=== PATIENT | female | born 1940 | race Caucasian/White ===

== ENCOUNTER 2019-07-15 16:52 | Emergency (ER) | payer MEDICARE, OTHER, SELFPAY ==
[2019-07-15 17:05] VITALS: BP 189/86; PULSE 88; RESP 20; TEMP 36.6; O2SAT 97
--- NOTE | 2019-07-15 17:34 | ED.GENADULT ---
HPI - General Adult General Chief complaint: Wound/Laceration Stated complaint: Injury on chin Time Seen by Provider: 07/15/19 17:36 Source: patient and RN notes reviewed Mode of arrival: ambulatory Limitations: no limitations History of Present Illness HPI narrative: This is a 78 years old female presented office for evaluation of possible infected wound. A week ago she fell asleep in a chair and injured her chin against a sharp end of her cabinet. She did not seek care immediately because it did not look bad until today. She stated her wound popped open and clear/yellow drainage with blood keeps oozing out. She is diabetic. TD unknown. Denies head injury or trauma that she recalls. She takes baby aspirin daily. Related Data Home Medications Medication Instructions Recorded Confirmed betamethasone dipropionate TOPICAL 07/15/19 cyclosporine [Restasis] 07/15/19 fluticasone propionate [Flonase INTRANASAL 07/15/19 Allergy Relief] gabapentin [Neurontin] 07/15/19 glyburide micronized mg 07/15/19 insulin glargine [Lantus Solostar unit SUBCUT 07/15/19 U-100 Insulin] losartan 07/15/19 metformin mg PO 07/15/19 potassium chloride meq PO 07/15/19 zolpidem 07/15/19 07/15/19 Allergies Allergy/AdvReac Type Severity Reaction Status Date / Time No Known Allergies Allergy Verified 07/15/19 17:10 Review of Systems Review of Systems: Narrative: CONSTITUTIONAL: Denies fever CARDIOVASCULAR: Denies chest pain RESPIRATORY: Denies dyspnea GASTROINTESTINAL: Denies nausea, vomiting SKIN: Reports cut on her chin with swelling, drainage and bruising down her neck MUSCULOSKELETAL: Denies extremities pain NEUROLOGIC: Denies lightheaded/headache or blurry vision [facility] Past Medical History Medical History (Updated 07/15/19 @ 18:13 by SOTO Shane) Essential (primary) hypertension Hyperlipidemia with target LDL less than 100 Type 2 diabetes mellitus with hyperglycemia Family History Family History Mother Family history of primary malignant neoplasm of liver Social History Social History Smoking status: Never smoker Second hand tobacco smoke exposure: No Alcohol intake: current Comments At time of signature, I agree with nursing past medical, surgical, social and family history. There is no relevant family history pertinent to the presenting complaint. Exam Narrative: Exam Narrative: GENERAL: This is a well-nourished, well-developed patient, in no apparent distress. EYES: PERRL. Sclera clear/white. Vision is grossly intact. THROAT: Mucous membranes moist, posterior pharynx clear; no laceration noted inside her mucosa CARDIOVASCULAR: Regular rate and rhythm without murmurs, gallops, or rubs. RESPIRATORY: Clear to auscultation. Breath sounds equal bilaterally. No wheezes, rales, or rhonchi. GASTROINTESTINAL: Abdomen soft, non-tender, nondistended. Bowel sounds are active. No hepato-splenomegaly, or palpable masses. No guarding. SKIN: chin noted ~1cm laceration with clear serous drainage express with gentle pressure with ecchymosis sourrouding that extends down to anterior neck; no tracheal tenderness/deviation. wound is cleaned and dress with Neosporin and Band-Aid. NEURO: awake, alert, and oriented to person, place and time. There were no obvious focal neurologic abnormalities. Steady gait EXTREMITIES: Normal range of motion. No edema. [place] Coma Scale Eye Opening: Spontaneous 4 Jean Coma Scale Motor: Obeys Commands 6 [place] Coma Scale Verbal: Oriented 5 Course Vital Signs Vital signs: Vital Signs Temperature 97.8 F 07/15/19 17:05 Pulse Rate 88 07/15/19 17:05 Respiratory Rate 20 07/15/19 17:05 Blood Pressure 189/86 H 07/15/19 17:05 Pulse Oximetry 97 07/15/19 17:05 Temperature 97.8 F 07/15/19 17:05 Pulse Rate 88 07/15/19 17:05 Respiratory Rat
[2019-07-15] MEDS: TETANUS/DIPHTHERIA TOXOIDS ADSORB 0.5 ML VIAL (*BKC) IM (18:01)
[2019-07-15] MEDS: cefTRIAXone 250 MG VIAL IM (18:05)
[2019-07-15] MEDS: LIDOCAINE HCL 1% LOCAL INJ 20 ML VIAL INFILTRATE (18:06)
[2019-07-15 18:20] VITALS: BP 150/88
--- NOTE | 2019-07-15 18:24 | PC.NURSE ---
1801. maker of boostrix tdap administered is [employer]. Anita KUHN RN.
== END 2019-07-15 18:22 | disposition home or self-care (01) ==
PROVIDERS: Emergency Provider Nurse Practitioner; PCP Family Medicine
DX: S01.80XA Unspecified open wound of other part of head, initial encounter (principal); L08.9 Local infection of the skin and subcutaneous tissue, unspecified; X58.XXXA Exposure to other specified factors, initial encounter; Z23 Encounter for immunization; E11.9 Type 2 diabetes mellitus without complications; I10 Essential (primary) hypertension; E78.5 Hyperlipidemia, unspecified
CPT/HCPCS: 90471; 90714; 96372; 99213; G0463; J0696

== ENCOUNTER 2020-02-09 12:17 | Emergency (ER) | payer MEDICARE, OTHER, SELFPAY ==
[2020-02-09 12:29] VITALS: BP 154/69; PULSE 106; RESP 16; TEMP 37.1; O2SAT 97
--- NOTE | 2020-02-09 12:46 | ED.BACK ---
HPI - Back Pain/Injury General Chief Complaint: Back Pain/Injury Stated Complaint: severe back pain Time Seen by Provider: 02/09/20 12:56 Source: patient History of Present Illness HPI Narrative: Patient presents with low back pain. Patient states she has no pain at the present. Patient states she had low back pain last night she took 2 Excedrin and pain was relieved. Patient states she was at water therapy today and was instructed to come to the [facility] care to rule out a urinary tract infection. Patient denies any burning with urination no urinary urgency denies any urinary continence denies any gross hematuria. Patient denies any flank pain no abdominal pain no pelvic pain. Patient denies any numbness or tingling denies any radiation of pain. Patient has no pain at present. MD elicited complaint: back pain Related Data Home Medications Medication Instructions Recorded Confirmed cyclosporine [Restasis] 07/15/19 fluticasone propionate [Flonase 2 spray INTRANASAL BID 07/15/19 Allergy Relief] gabapentin [Neurontin] 300 mg PO DAILY 07/15/19 glyburide micronized 3 mg PO BID 07/15/19 insulin glargine [Lantus Solostar 10 unit SUBCUT HS 07/15/19 U-100 Insulin] losartan 50 mg PO DAILY 07/15/19 potassium chloride 20 meq PO DAILY 07/15/19 zolpidem 5 mg PO HS 07/15/19 07/15/19 furosemide 02/09/20 02/09/20 Allergies Allergy/AdvReac Type Severity Reaction Status Date / Time No Known Allergies Allergy Verified 02/09/20 12:52 Review of Systems Review of Systems: Narrative: CONSTITUTIONAL: Denies fever, chills, or sweats. EYES: Denies visual changes, redness, or discharge. ENT: Denies rhinorrhea, congestion, sore throat, or otalgia. CARDIOVASCULAR: Denies chest pain, palpitations, or edema. RESPIRATORY: Denies cough or dyspnea. GASTROINTESTINAL: Denies abdominal pain, nausea, vomiting, or diarrhea. GENITOURINARY: Denies dysuria or hematuria. SKIN: Denies rash or itching. MUSCULOSKELETAL: Denies back pain, joint pain, or myalgia. NEUROLOGIC: Denies headache, numbness, or weakness. PSYCHIATRIC: Denies anxiety or depression. [facility] Past Medical History Medical History (Updated 11/06/20 @ 12:55 by SOTO Smith) Essential (primary) hypertension Hyperlipidemia with target LDL less than 100 Type 2 diabetes mellitus with hyperglycemia Family History Family History Mother Family history of primary malignant neoplasm of liver Social History Social History Smoking status: Never smoker Second hand tobacco smoke exposure: No Alcohol intake: current Comments At time of signature, agree with nursing past medical, surgical, social and family history. There is no relevant family history pertinent to the presenting complaint Exam Narrative: Exam Narrative: GENERAL: Well-appearing, well-nourished, and in no acute distress. HEAD: Normocephalic, atraumatic. EYES: PERRLA and EOMI. ENT: Nares clear, no rhinorrhea or epistaxis. Mucous membranes moist. NECK: Supple. CHEST: Clear to auscultation. No respiratory distress. HEART: Regular rate and rhythm. No murmur heard. Normal peripheral pulses. ABDOMEN: Soft, nontender, nondistended, normal active bowel sounds. EXTREMITIES: Normal range of motion. No edema. SPINE MIDLINE. NO CURVATURE APPARENT. NO VERTEBRAL POINT SPECIFIC TENDERNESS. NO DEFORMITY. NO STEP-OFFS. NORMAL LE STRENGTH BILATERALLY. NORMAL LE SENSATION BILATERALLY. ABLE TO WALK ON TOES AND HEELS WITH NORMAL DORSIFLEXION AND PLANTAR FLEXION STRENGTH. NO WEAKNESS OBSERVED WITH GAIT. - PARASPINAL MUSCLE TENDERNESS. - SI JOINT TENDERNESS. FLEXION AND EXTENSION ROM SKIN: Warm, dry, no rash. NEURO: No focal deficits. Alert and oriented x3. [place] Coma Scale Eye Opening: Spontaneous 4 Jean Coma Scale Motor: Obeys Commands 6 Jean Coma Scale Verbal: Oriented 5 Jean Coma Scale Total 15
== END 2020-02-09 12:56 | disposition home or self-care (01) ==
PROVIDERS: Emergency Provider Nurse Practitioner Family; PCP Family Medicine
DX: N39.0 Urinary tract infection, site not specified (principal); M54.5 Low back pain; I10 Essential (primary) hypertension; E78.5 Hyperlipidemia, unspecified; E11.9 Type 2 diabetes mellitus without complications
CPT/HCPCS: 81003; 87086; 99213; G0463

== ENCOUNTER 2020-10-13 10:15 | Emergency (ER) | payer MEDICARE, OTHER, SELFPAY ==
[2020-10-13 10:23] VITALS: BP 149/77; PULSE 86; RESP 16; TEMP 37.2; O2SAT 98
--- NOTE | 2020-10-13 10:55 | ED.SKABFB ---
HPI - Skin/Abscess/Foreign Bdy General Chief complaint: Skin/Abscess/Foreign Body Stated complaint: Rash on Body and swollen left Eye Time Seen by Provider: 10/13/20 10:38 Source: patient and RN notes reviewed Mode of arrival: ambulatory Limitations: no limitations History of Present Illness HPI narrative: Patient presents today complaining of rash to her right forearm and left face since yesterday. She was out cleaning her yard brush and weeds prior to onset of symptoms. She became concerned because she does have some swelling to her left eyelid. History of diabetes. She has not tried any [id number] treatment prior to arrival. MD complaint: rash Related Data Home Medications Medication Instructions Recorded Confirmed cyclosporine [Restasis] See Rx Instructions .ROUTE .COMPLEX 07/15/19 10/13/20 fluticasone propionate [Flonase 2 spray INTRANASAL BID 07/15/19 10/13/20 Allergy Relief] gabapentin [Neurontin] 300 mg PO DAILY 07/15/19 10/13/20 glyburide micronized 3 mg PO BID 07/15/19 10/13/20 insulin glargine [Lantus Solostar 10 unit SUBCUT HS 07/15/19 10/13/20 U-100 Insulin] losartan 50 mg PO DAILY 07/15/19 10/13/20 potassium chloride 20 meq PO DAILY 07/15/19 10/13/20 zolpidem 5 mg PO HS 07/15/19 10/13/20 furosemide 20 mg PO DAILY 02/09/20 10/13/20 trazodone 100 mg PO TID 02/09/20 10/13/20 aspirin [Aspirin Childrens] 81 mg PO DAILY 10/13/20 10/13/20 Allergies Allergy/AdvReac Type Severity Reaction Status Date / Time No Known Allergies Allergy Verified 02/09/20 12:52 Review of Systems Review of Systems: Narrative: CONSTITUTIONAL: Denies body aches, fever, chills, or sweats. EYES: Denies visual changes, redness, or discharge. ENT: Denies rhinorrhea, congestion, sore throat, or otalgia. CARDIOVASCULAR: Denies chest pain, palpitations, or edema. RESPIRATORY: Denies cough or dyspnea. GASTROINTESTINAL: Denies abdominal pain, nausea, vomiting, or diarrhea. GENITOURINARY: Denies dysuria or hematuria. SKIN: Denies wounds.+ Pruritic rash MUSCULOSKELETAL: Denies back pain, joint pain, or myalgia. NEUROLOGIC: Denies headache, numbness, tingling, or weakness. PSYCH: Denies depression or anxiety. [facility] Past Medical History Medical History (Updated 10/13/20 @ 10:59 by Susanna Souza, [employer], ) Essential (primary) hypertension Gastric ulcer History of blood transfusion Hyperlipidemia with target LDL less than 100 Type 2 diabetes mellitus with hyperglycemia Family History Family History Mother Family history of primary malignant neoplasm of liver Social History Social History Smoking status: Never smoker Second hand tobacco smoke exposure: No Alcohol intake: current Comments At time of signature, I have reviewed and agree with nursing past medical, surgical, social and family history unless otherwise noted. Please see nursing chart for further information. There is no relevant family history pertinent to the presenting complaint Exam Narrative: Exam Narrative: GENERAL: Well-appearing, well-nourished, and in no acute distress. HEAD: Normocephalic, atraumatic. EYES: EOMI. No redness or drainage. Conjunctivae normal. ENT: Mucous membranes pink and moist. NECK: Normal AROM. CHEST: No respiratory distress. EXTREMITIES: Normal range of motion. No edema. SKIN: Warm, dry. Capillary refill normal. Normal skin turgor. Cluster of tiny vesicular rash to the right distal forearm and dorsum of the right hand. Erythematous maculopapular rash to the lower jewish and lateral forehead extending to the left eyebrow with swelling to the left upper eyelid. NEURO: No focal deficits. Alert and oriented x3. Gait steady. PSYCH: Normal affect. No signs of depression or anxiety. Course Vital Signs Vital signs: Vital Signs Temperature 99 F 10/13/20 10:23 Pulse Rate 86 10/13/20 10:23
== END 2020-10-13 11:04 | disposition home or self-care (01) ==
PROVIDERS: Emergency Provider Nurse Practitioner; PCP Family Medicine
DX: L25.9 Unspecified contact dermatitis, unspecified cause (principal); I10 Essential (primary) hypertension; E78.5 Hyperlipidemia, unspecified; E11.9 Type 2 diabetes mellitus without complications
CPT/HCPCS: 99213; G0463

== ENCOUNTER 2022-01-11 10:06 | Emergency (ER) | payer MEDICARE, OTHER, SELFPAY ==
--- NOTE | ~2022-01-11 | XR_ITS ---
XR abdomen/kub 1V 01/11/2022 11:31 Indication: Left-sided abdomen pain Procedure: KUB Comparison: No prior studies for comparison. Findings: Bowel gas pattern is nonobstructive. Moderate colonic fecal loading. There are vascular coi ls in the right upper abdomen. No acute osseous abnormality. Impression: 1: No acute abdominal abnormality. Reviewed, dictated and finalized at location A. Impression: 1: No acute abdominal abnormality.
[2022-01-11 10:17] VITALS: BP 153/70; PULSE 105; RESP 20; TEMP 36.9; O2SAT 95
[2022-01-11 10:35] VITALS: PULSE 105; RESP 20; TEMP 36.9; O2SAT 95
--- NOTE | 2022-01-11 10:36 | ECG_ITS ---
Measurements Intervals [place] Rate: 99 P: 62 NV: 128 QRS: -11 QRSD: 83 T: 14 QT: 335 QTc: 431 Interpretive Statements SINUS RHYTHM NONSPECIFIC ST-T WAVE ABNORMALITY NO PREVIOUS ECG AVAILABLE FOR COMPARISON Electronically Signed On 01-12-2022 11:22:36 CDT by Bhumi Davila M.D.
--- NOTE | 2022-01-11 11:16 | ED.CHESTPAIN ---
HPI - Chest Pain General Chief Complaint: Chest Pain Stated Complaint: pain on left side front and back Source: patient, RN notes reviewed and old records reviewed Mode of arrival: ambulatory Limitations: no limitations History of Present Illness HPI narrative: 81-year-old female who presents to [facility] care with complaints of left sided anterior chest pains which started 2 days ago. Patient reports that pain started in lower left abdomen and radiates to anterior chest. She also states pain to lower left back that radiates to shoulder blade.Patient reports that pain is intermittent and that she has some shortness of breath when pain hits. Patient denies any pain at present time. denies any cough, congestion or any signs or symptoms of URI. Patient denies any associated relationship to activity or any nausea or any episodes of sweating. MD complaint: chest pain (intermittent) Onset (ago): day(s) (2) Related Data Home Medications Medication Instructions Recorded Confirmed cyclosporine 0.05 % eye drops in a See Rx Instructions .Route .COMPLEX 07/15/19 01/11/22 dropperette (Restasis) fluticasone propionate 50 2 spray intranasal BID 07/15/19 01/11/22 mcg/actuation nasal spray,suspension (Flonase Allergy Relief) gabapentin 300 mg capsule 300 mg PO DAILY 07/15/19 01/11/22 (Neurontin) glyburide micronized 3 mg tablet 3 mg PO BID 07/15/19 01/11/22 insulin glargine 100 unit/mL (3 10 unit subcut HS 07/15/19 01/11/22 mL) subcutaneous pen (Lantus Solostar U-100 Insulin) losartan 50 mg tablet 50 mg PO DAILY 07/15/19 01/11/22 potassium chloride 20 mEq 20 meq PO DAILY 07/15/19 01/11/22 tablet,extended release(part/cryst) zolpidem 5 mg tablet 5 mg PO HS 07/15/19 01/11/22 furosemide 20 mg tablet 20 mg PO DAILY 02/09/20 01/11/22 trazodone 100 mg tablet 100 mg PO TID 02/09/20 01/11/22 aspirin 81 mg chewable tablet 81 mg PO DAILY 10/13/20 01/11/22 (Aspirin Childrens) Allergies Allergy/AdvReac Type Severity Reaction Status Date / Time No Known Allergies Allergy Verified 10/09/22 10:34 Review of Systems Review of Systems: CONSTITUTIONAL: Denies fever, chills, or sweats. EYES: Denies visual changes, redness, or discharge. ENT: Denies rhinorrhea, congestion, sore throat, or otalgia. CARDIOVASCULAR: Reports intermittent left sided chest pain,no palpitations, or edema. RESPIRATORY: Denies cough , states dyspnea when she has pain. GASTROINTESTINAL: Reports left sided intermittent abdominal pain that radiates to chest, denies any nausea, vomiting, or diarrhea. GENITOURINARY: Denies dysuria or hematuria. SKIN: Denies rash or itching. MUSCULOSKELETAL: Reports intermittent left sided back pain that radiates to shoulder blade, joint pain, or myalgia. NEUROLOGIC: Denies headache, numbness, or weakness. PSYCHIATRIC: Denies anxiety or depression. All systems reviewed & are unremarkable except as noted in HPI and below PMFSH Past Medical History Medical History (Updated 01/12/22 @ 20:53 by Ines Lawrence NP) Arthritis Essential (primary) hypertension Gastric ulcer History of blood transfusion Hyperlipidemia with target LDL less than 100 Type 2 diabetes mellitus with hyperglycemia Surgical History Surgical History (Updated 01/12/22 @ 20:52 by Ines Lawrence NP) H/O abdominal surgery related to ulcer repair 03/2020 Family History Family History Mother Family history of primary malignant neoplasm of liver Social History Social History Smoking status: Never smoker Second hand tobacco smoke exposure: No Alcohol intake: current Comments At time of signature, agree with nursing past medical, surgical, social and family history. There is no relevant family history pertinent to the presenting complaint Exam Narrative: GENERAL: Well-appearing, well-nourished, and in no acute distres
== END 2022-01-11 12:10 | disposition home or self-care (01) ==
PROVIDERS: Emergency Provider Registered Nurse
DX: R07.89 Other chest pain (principal); M19.90 Unspecified osteoarthritis, unspecified site; I10 Essential (primary) hypertension; E78.5 Hyperlipidemia, unspecified; E11.9 Type 2 diabetes mellitus without complications; Z79.84 Long term (current) use of oral hypoglycemic drugs; Z79.82 Long term (current) use of aspirin
CPT/HCPCS: 74018; 93005; 99213; G0463

== ENCOUNTER 2022-06-28 13:45 | Emergency (ER) | payer MEDICARE, OTHER, SELFPAY ==
--- NOTE | ~2022-06-28 | XR_ITS ---
XR hip RT min 2V DATE: 06/28/2022 15:40 INDICATION: Recent fall. Right hip pain TECHNIQUE: AP and lateral views of right hip COMPARISON: None FINDINGS: Moderate right hip osteoarthritis. No fracture, dislocation, avascular necrosis or bone manuel truction. The pubic symphysis and sacroiliac joints are intact. Severe degenerative disc disease at L5-S1. Suspected approximately 4 mm lower pole right renal calcified calculus. IMPRESSION: Moderate right hip osteoarthritis Severe degenerative disc disease at L5-S1 No fracture or dislocation of right hip Reviewed, dictated and finalized at location A.
--- NOTE | ~2022-06-28 | XR_ITS ---
XR forearm RT 2V DATE: 06/28/2022 15:39 INDICATION: Patient fell on June 25, 2022. Right arm pain since then. TECHNIQUE: AP and lateral views COMPARISON: None FINDINGS: No recent fracture or dislocation. No elbow joint effusion is noted. There is osteopenia. T here is osteoarthritic change at the radiocarpal joint. IMPRESSION: No recent fracture or dislocation Reviewed, dictated and finalized at location A.
--- NOTE | ~2022-06-28 | XR_ITS ---
XR chest 2V DATE: 06/28/2022 15:41 INDICATION: Fell forward one week ago. Chest pain. TECHNIQUE: 2 views COMPARISON: None FINDINGS: Moderate hyperinflation. Mild discoid atelectasis or scarring in the right mid to upper rossy g and left midlung. No pulmonary infiltrate or consolidation, pleural effusion or pulmonary vascular congestion or pneumothorax. Normal heart size. Minimal aortic unfolding. No hilar or mediastinal enlargement. Postoperative changes of the abdomen. Osteopenia. IMPRESSION: Moderate hyperinflation Minimal bilateral discoid atelectasis or scarring No active cardiopulmonary disease Reviewed, dictated and finalized at location A.
[2022-06-28 13:57] VITALS: BP 166/92; PULSE 113; RESP 20; TEMP 36.2; O2SAT 100
--- NOTE | 2022-06-28 14:00 | ECG_ITS ---
Measurements Intervals [place] Rate: 103 P: 71 LA: 122 QRS: -37 QRSD: 94 T: 49 QT: 330 QTc: 433 Interpretive Statements SINUS TACHYCARDIA LEFT AXIS DEVIATION LEFT ATRIAL ENLARGEMENT LEFT VENTRICULAR HYPERTROPHY CANNOT RULE OUT SEPTAL INFARCT, AGE INDETERMINATE BORDERLINE ST ABNORMALITY- ANTEROLAT/HIGH LAT LEADS BASELINE ARTIFACT- I, AVR, AVL, AVF ABNORMAL ECG COMPARED TO ECG 01/11/2022 10:50:03 SINUS TACHYCARDIA NOW PRESENT LEFT-AXIS DEVIATION NOW PRESENT Electronically Signed On 06-29-2022 8:11:06 CDT by Anthony Hope D.O.
--- NOTE | 2022-06-28 16:36 | ED.GENADULT ---
HPI - General Adult General Chief complaint: Fall Stated complaint: chest pain, night sweat sob Source: patient Mode of arrival: ambulatory Limitations: no limitations History of Present Illness HPI narrative: Patient presents for evaluation of several concerns. She indicates she has fallen twice at home for the last week and half. The 1st time she was using a flashlight to walk to the bathroom in the dark when she fell landed on her left arm. She did not hit her head. No LOC. She was not medically evaluated following the fall. She fell again three nights ago. She was attempting to get up out of a chair and transfer to another chair. The chair to which she was transferring tapped she landed on top of it. She bumped her right hip, right forearm, head and chest. No loss of consciousness. She is not anticoagulated. No vomiting since the episode. Last night she woke from sleep with fluctuations between hot flashes and chills. She denies any other infectious symptoms including but not limited to otalgia, sore throat, nausea, vomiting, urinary symptoms or cough. She has experienced some chest pain on and off for the last few months. She does not have chest pain at present time. When she does experience chest pain she states that it is dull and rated 2/10 severity. She is under the care of emergency operator, Dr. Umana. She also reports a headache which is global, dull, 4/10 in severity. She has underlying DM for which she takes glyburide and lantus with anywhere between 10-14 units daily depending on her BS readings. No additional complaints or concerns. Related Data Home Medications Medication Instructions Recorded Confirmed cyclosporine 0.05 % eye drops in a See Rx Instructions .Route .COMPLEX 07/15/19 01/11/22 dropperette (Restasis) fluticasone propionate 50 2 spray intranasal BID 07/15/19 01/11/22 mcg/actuation nasal spray,suspension (Flonase Allergy Relief) gabapentin 300 mg capsule 300 mg PO DAILY 07/15/19 01/11/22 (Neurontin) glyburide micronized 3 mg tablet 3 mg PO BID 07/15/19 01/11/22 insulin glargine 100 unit/mL (3 10 unit subcut HS 07/15/19 01/11/22 mL) subcutaneous pen (Lantus Solostar U-100 Insulin) losartan 50 mg tablet 50 mg PO DAILY 07/15/19 01/11/22 potassium chloride 20 mEq 20 meq PO DAILY 07/15/19 01/11/22 tablet,extended release(part/cryst) zolpidem 5 mg tablet 5 mg PO HS 07/15/19 01/11/22 furosemide 20 mg tablet 20 mg PO DAILY 02/09/20 01/11/22 trazodone 100 mg tablet 100 mg PO TID 02/09/20 01/11/22 aspirin 81 mg chewable tablet 81 mg PO DAILY 10/13/20 01/11/22 (Aspirin Childrens) Allergies Allergy/AdvReac Type Severity Reaction Status Date / Time No Known Allergies Allergy Verified 01/11/22 10:34 Review of Systems Review of Systems: CONSTITUTIONAL: Reports hot flashes and chills. EYES: Denies visual changes, redness, or discharge. ENT: Denies rhinorrhea, congestion, sore throat, or otalgia. CARDIOVASCULAR: Reports intermittent chest pain. Denies palpitations, or edema. RESPIRATORY: Denies cough or dyspnea. GASTROINTESTINAL: Denies abdominal pain, nausea, vomiting, or diarrhea. GENITOURINARY: Denies dysuria or hematuria. SKIN: Reports bruising to right forearm, right shoulder, and right hip MUSCULOSKELETAL: Reports right forearm and right hip pain following her fall. Reports chronic low back pain, unchanged from baseline. NEUROLOGIC:Reports headache. Denies numbness, dizziness, or weakness. PSYCHIATRIC: Denies anxiety or depression. [facility] Past Medical History Medical History Arthritis Essential (primary) hypertension Gastric ulcer History of blood transfusion Hyperlipidemia with target LDL less than 100 Type 2 diabetes mellitus with hyperglycemia Surgical History Surgical History H/O abdominal surgery related to ulcer repair 03/2020 Family His
== END 2022-06-28 16:41 | disposition home or self-care (01) ==
PROVIDERS: Emergency Provider Nurse Practitioner; PCP Family Medicine
DX: R07.9 Chest pain, unspecified (principal); S70.01XA Contusion of right hip, initial encounter; S50.11XA Contusion of right forearm, initial encounter; S00.93XA Contusion of unspecified part of head, initial encounter; R68.83 Chills (without fever); I10 Essential (primary) hypertension; E78.5 Hyperlipidemia, unspecified; E11.9 Type 2 diabetes mellitus without complications; Z79.4 Long term (current) use of insulin; W18.30XA Fall on same level, unspecified, initial encounter; Y92.009 Unspecified place in unspecified non-institutional (private) residence as the place of occurrence of the external cause
CPT/HCPCS: 71046; 73090; 73502; 81003; 93005; 99214; G0463

== ENCOUNTER 2023-08-09 18:46 | Emergency (ER) | payer MEDICARE, OTHER, SELFPAY ==
[2023-08-09 18:52] VITALS: BP 179/88; PULSE 78; RESP 20; TEMP 36.5; O2SAT 100
--- NOTE | 2023-08-09 19:19 | ED.SKABFB ---
HPI - Skin/Abscess/Foreign Bdy General Chief complaint: Skin/Abscess/Foreign Body Stated complaint: right hand possible bite Source: patient Mode of arrival: ambulatory Limitations: no limitations History of Present Illness HPI narrative: 82-year-old female presented for complaint of right hand wound near thumb, red rash to right hand and left forearm, also reports red scabbed areas to the torso. States she believes these of started over the past few weeks. She states the are related to the chlorine at her exercise facility. denies any itching, drainage, or pain to the sites. Denies lip, tongue, or throat swelling, shortness of breath or wheezing. Denies changes to soap, detergent, lotion, or any other exposures. No one else in the house or any contacts with similar symptoms. She has applied Eucerin cream to the sites. Related Data Home Medications Medication Instructions Recorded Confirmed cyclosporine 0.05 % eye drops in a See Rx Instructions .Route .COMPLEX 07/15/19 01/11/22 dropperette (Restasis) fluticasone propionate 50 2 spray intranasal BID 07/15/19 01/11/22 mcg/actuation nasal spray,suspension (Flonase Allergy Relief) gabapentin 300 mg capsule 300 mg PO DAILY 07/15/19 01/11/22 (Neurontin) glyburide micronized 3 mg tablet 3 mg PO BID 07/15/19 01/11/22 insulin glargine 100 unit/mL (3 10 unit subcut HS 07/15/19 01/11/22 mL) subcutaneous pen (Lantus Solostar U-100 Insulin) losartan 50 mg tablet 50 mg PO DAILY 07/15/19 01/11/22 potassium chloride 20 mEq 20 meq PO DAILY 07/15/19 01/11/22 tablet,extended release(part/cryst) zolpidem 5 mg tablet 5 mg PO HS 07/15/19 01/11/22 furosemide 20 mg tablet 20 mg PO DAILY 02/09/20 01/11/22 trazodone 100 mg tablet 100 mg PO TID 02/09/20 01/11/22 aspirin 81 mg chewable tablet 81 mg PO DAILY 10/13/20 01/11/22 (Aspirin Childrens) Allergies Allergy/AdvReac Type Severity Reaction Status Date / Time No Known Allergies Allergy Verified 01/11/22 10:34 Review of Systems Review of Systems: CONSTITUTIONAL: Denies body aches, fever, chills, or sweats. EYES: Denies visual changes, redness, or discharge. ENT: Denies rhinorrhea, congestion CARDIOVASCULAR: Denies chest pain, palpitations, or edema. RESPIRATORY: Denies cough or dyspnea. GASTROINTESTINAL: Denies abdominal pain, nausea, vomiting, or diarrhea. SKIN: Reports rash MUSCULOSKELETAL: Denies back pain, joint pain, or myalgia. NEUROLOGIC: Denies headache, numbness, tingling, or weakness. [facility] Past Medical History Medical History Arthritis Essential (primary) hypertension Gastric ulcer History of blood transfusion Hyperlipidemia with target LDL less than 100 Type 2 diabetes mellitus with hyperglycemia Surgical History Surgical History H/O abdominal surgery related to ulcer repair 03/2020 Family History Family History Mother Family history of primary malignant neoplasm of liver Social History Social History Smoking status: Never smoker Second hand tobacco smoke exposure: No Alcohol intake: current Substance use: never Living arrangements: alone Gender identity (if verbalized by the patient): Female Spiritual care concerns: No Comments At time of signature, I have reviewed and agree with nursing past medical, surgical, social and family history unless otherwise noted. Please see nursing chart for further information. There is no relevant family history pertinent to the presenting complaint Exam Narrative: GENERAL: Well-appearing ENT: Mucous membranes moist. Oropharynx without edema, erythema or lesions. CHEST: Clear to auscultation. HEART: Regular rate and rhythm. SKIN: Warm, dry. Right hand with less than 0.5 cm diameter scabbed superf
== END 2023-08-09 19:28 | disposition home or self-care (01) ==
PROVIDERS: Emergency Provider Nurse Practitioner Family; PCP Family Medicine
DX: L30.9 Dermatitis, unspecified (principal); Z79.4 Long term (current) use of insulin; Z79.82 Long term (current) use of aspirin; I10 Essential (primary) hypertension; E78.5 Hyperlipidemia, unspecified; E11.9 Type 2 diabetes mellitus without complications
CPT/HCPCS: 99213; G0463

== ENCOUNTER 2024-01-03 14:14 | Emergency (ER) | payer MEDICARE, OTHER, SELFPAY ==
--- NOTE | ~2024-01-03 | XR_ITS ---
EXAMINATION: XR chest 2V Exam Date/Time: 01/03/2024 15:08 CDT HISTORY: COUGH, FEVER,RECENT TRAVEL INTERNATIONAL Comparison: 06/28/2022. RESULT: Lines, tubes, and devices: Embolization coils in the upper abdomen with. Lungs and pleura: Left mid and lower lung scar, otherwise clear. Cardiomediastinal silhouette: Stable. Other: No acute osseous or upper abdominal finding. IMPRESSION: No acute cardiopulmonary process. Reviewed, dictated and finalized at location K.
[2024-01-03 14:20] VITALS: BP 194/92; PULSE 91; RESP 20; TEMP 36.3; O2SAT 95
[2024-01-03 15:04] LABS: EDCOVIDSCREEN Negative (Negative)
--- NOTE | 2024-01-03 15:42 | ED.URI ---
HPI - URI/Sore Throat General Chief Complaint: Upper Respiratory Infection Stated Complaint: Shortness of Breath/Diarrhea/Cough History of Present Illness HPI Narrative: Patient is an 81-year-old female, past medical is significant for hypertension, presents to [facility] with approximately 2 week history of cough, nasal congestion and malaise, followed by chills and productive sputum, productive nasal discharge that is green in color over the past 48 hours. She did travel internationally last month returning approximately 3 weeks ago. She denies associated chest pain, orthopnea, calf pain or swelling. She is taking [id number] cold medication with minimal relief. She denies any additional associated symptoms or modifying factors. Related Data Home Medications Medication Instructions Recorded Confirmed cyclosporine 0.05 % eye drops in a See Rx Instructions .Route .COMPLEX 07/15/19 01/03/24 dropperette (Restasis) fluticasone propionate 50 2 spray intranasal BID 07/15/19 01/03/24 mcg/actuation nasal spray,suspension (Flonase Allergy Relief) gabapentin 300 mg capsule 300 mg PO DAILY 07/15/19 01/03/24 (Neurontin) glyburide micronized 3 mg tablet 3 mg PO BID 07/15/19 01/03/24 insulin glargine 100 unit/mL (3 10 unit subcut HS 07/15/19 01/03/24 mL) subcutaneous pen (Lantus Solostar U-100 Insulin) losartan 50 mg tablet 50 mg PO DAILY 07/15/19 01/03/24 potassium chloride 20 mEq 20 meq PO DAILY 07/15/19 01/03/24 tablet,extended release(part/cryst) zolpidem 5 mg tablet 5 mg PO HS 07/15/19 01/03/24 furosemide 20 mg tablet 20 mg PO DAILY 02/09/20 01/03/24 trazodone 100 mg tablet 100 mg PO TID 02/09/20 01/03/24 aspirin 81 mg chewable tablet 81 mg PO DAILY 10/13/20 01/03/24 (Aspirin Childrens) atorvastatin 40 mg tablet 40 mg PO DAILY 01/03/24 01/03/24 glimepiride 4 mg tablet 4 mg PO DAILY 01/03/24 01/03/24 metoprolol succinate 25 mg 25 mg PO DAILY 01/03/24 01/03/24 tablet,extended release 24 hr oxycodone 5 mg tablet See Rx Instructions .Route .COMPLEX 01/03/24 01/03/24 pantoprazole 40 mg tablet,delayed 40 mg PO DAILY 01/03/24 01/03/24 release sitagliptin phosphate 100 mg 100 mg PO DAILY 01/03/24 01/03/24 tablet (Januvia) Allergies Allergy/AdvReac Type Severity Reaction Status Date / Time No Known Allergies Allergy Verified 01/03/24 14:51 Review of Systems ENT: Comments: Refer HPI Respiratory: Comments: [facility] Past Medical History Medical History Arthritis Essential (primary) hypertension Gastric ulcer History of blood transfusion Hyperlipidemia with target LDL less than 100 Type 2 diabetes mellitus with hyperglycemia Surgical History Surgical History H/O abdominal surgery related to ulcer repair 03/2020 Family History Family History Mother Family history of primary malignant neoplasm of liver Social History Social History Smoking status: Never smoker Second hand tobacco smoke exposure: No Alcohol intake: current Substance use: never Living arrangements: alone Gender identity (if verbalized by the patient): Female Spiritual care concerns: No Exam Const: General: healthy appearing, no acute distress and alert Nutritional Appearance: well nourished Orientation/consciousness: patient oriented x3 Limitations: no limitations HENMT: Head: normal to inspection Ears: external ears normal, TM's normal bilaterally and EAC's normal Face/Nose/Sinus: Normal external nose present and Nasal discharge present purulent Face and sinus: normal facial exam and sinus tenderness maxillary Mouth: Yes Normal oral and palatal mucosa present, Yes lip normal and Yes moist mucous membranes Teeth and gingiva: dentition normal Throat:
== END 2024-01-03 15:55 | disposition home or self-care (01) ==
PROVIDERS: Emergency Provider Nurse Practitioner Family; PCP Emergency Medicine
DX: J01.00 Acute maxillary sinusitis, unspecified (principal); Z20.822 Contact with and (suspected) exposure to COVID-19; I10 Essential (primary) hypertension; E78.5 Hyperlipidemia, unspecified; E11.9 Type 2 diabetes mellitus without complications; M19.90 Unspecified osteoarthritis, unspecified site; Z79.82 Long term (current) use of aspirin
CPT/HCPCS: 71046; 87426; 99213; G0463

== ENCOUNTER 2024-08-28 13:37 | Emergency (ER) | payer MEDICARE, OTHER, SELFPAY ==
--- OUTSIDE RECORDS SUMMARY | 2024-08-28 13:39 | XMS_ITS | Encounter Summary ---
Author Organization [facility] Address [address] [place] [address] Care Team Providers Care Community Mental Health Social Worker Name Role Phone Abdullahi Garcia MD Primary Care Provider [phone] Encounter Details Date Type Department Care Team (Late st Contact Info) Description 01/14/2024 Lab Requisition [facility] - DermPath Lab [address], [facility] [place] [id number] Michele Paulino MD [address] [place] [address] Social History Tobacco Use Types Packs/Day Years Used Date Smoking Tobacco: Never Alcohol Use Standard Drinks/Week Comments Yes 0 (1 standard drink = 0.6 oz pur e alcohol) Comments Unknown Sex and Gender Information Value Date Recorded Sex Assigned at Not on file Legal Sex Female 6:24 PM [employer] Gender Identity Not on file Sexual Orientation Not on file documented as of this encounter Plan of Treatment Not on file documented as of this encounter Procedures Procedure Name Priority Date/Time Associated Diagnosis Comments DERMATOPATHOLOGY Routine 01/12/2024 12:0 0 AM CDT documented in this encounter Results * DERMATOPATHOLOGY (01/12/2024 12:00 AM CDT) Case Report Dermatopathology Report Case: [id number] Authorizing Provider: Michele Paulino MD Collected: 01/12/2024 12:00 AM Ordering Location: [facility] - Received: 01/17/2024 06:33 AM DermPath Lab Pathologist: Gloria Franz MD Specimens: A) - Skin, right side nose B) - Skin, right lateral bulb C) - Skin, behind left ear on scalp 4:56 PM CDT DERMATOPATHOLOGY LABORATORY Final Diagnosis Specimen A. 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 The specimen consists of a shave biopsy measuring 6x4x1 mm. Jar 0. Specimen B: Received is one formalin filled container labeled with the patient's name and designated right lateral bulb. The specimen consists of a shave biopsy measuring 7x6x2 mm. Jar 0. Specimen C: Received is one formalin filled container labeled with the patient's name and designated behind left ear on scalp. The specimen consists of a shave biopsy measuring 8x6x2 mm. Jar 0. 4:56 PM CDT DERMATOPATHOLOGY LABORATORY Microscopic Description Specimen A. SKIN, right side nose: The epidermis shows parakeratosis, full thickness disorderly maturation of keratinocytes, mitoses at different levels, and dyskeratotic cells. Specimen B. SKIN, right lateral bulb: The epidermis shows parakeratosis, full thickness disorderly maturation of keratinocytes, mitoses at different levels, and dyskeratotic cells. Specimen C. SKIN, behind left ear on scalp: Within the dermis there are aggregates of basaloid cells with a high nuclear to cytoplasmic ratio and peripheral palisading. 4:56 PM CDT DERMATOPATHOLOGY LABORATORY Disclaimer An external and internal positive and negative controls are appropriate for the histochemical, immunohistochemical and immunofluorescence stain(s) in this case (if any), except where stated explicitly. The performance characteristics of the stain(s) cited in this report were developed and its performance characteristic determined by the Dermatopathology Laboratory at [facility], directed by Dr. Xiang Moralez. These tests need not be, and therefore are not, approved by the [place] Food and Drug Administration. The tests are used for clinical purposes. Billing Codes Specimen Charges Stain Charges 60623 [id number] 1 1 1 4 4:56 PM CDT DERMATOPATHOLOGY LABORATORY Embedded Images 4:56 PM CDT DERMATOPATHOLOGY LABORATORY Pathology/Cytology TISSUE SPECIMEN FROM SKIN / Unknown 01/12/2024 01/17/2024 6:33 AM CDT Miscellaneous samples (specimen) TISSUE SPECIMEN FROM SKIN / Unknown 01/12/2024 01/17/2024 6:33 AM CDT Miscellaneous samples (specimen) TISSUE SPECIMEN FROM SKIN / Unknown 01/12/2024 01/17/2024 6:33 AM CDT Michele Paulino MD LAB - PATHOLOGY/CYTOLOGY ORD ERABLES Final Result DERMATOPATHOLOGY LABORATORY [facility] - Department of Dermatology [facility] [address] [place] [address], [address] [phone] documented in this encounter Visit Diagnoses Not on filedocumented in this encounter Care Teams Community Mental Health Social Worker Relationship Specialty Start Date End [place] [id number] PCP - General 01/29/12 documented as of this encounter
--- OUTSIDE RECORDS SUMMARY | 2024-08-28 13:39 | XMS_ITS | Clinical Summary ---
Author Organization [facility] Address [address] [place] [address] Care Team Providers Care Supervisor Winding Department Name Role Phone Abdullahi Garcia MD Primary Care Provider [phone] Praveen Livingston MD Unavailable [phone] Allergies Active Allergy Reactions Criticality Noted Date Comments Chlorine Rash Medium 08/27/2022 Latex Rash Medium 09/22/2017 Poison Gely Extract Medications lancets miscIndication s:Type 2 diabetes mellitus without complication, without long-term current use of insulin (HCC) Use to check blood sugars once daily or as directed. 200 each 11 0 Active acetaminophen 500 mg capsule Take 2 capsules (1,000 mg total) by mouth every 6 (six) hours 30 tablet 0 Active cycloSPORINE (RESTASIS) 0.05 % ophthalmic emulsion Administer 1 drop into both eyes 2 (two) times a day Please dispense a 3 month supply with 3 refills. 6 each 3 4 Active fluticasone propionate (FLONASE) 50 mcg/actuation nasal spray Administer 2 sprays into each nostril daily 3 each 3 4 Active insulin glargine 100 unit/mL (3 mL) pen for injectionIndic ations:Type 2 diabetes mellitus with diabetic polyneuropathy , with long-term current use of insulin ([facility]) Inject 14 Units under the skin nightly 45 mL 4 4 Active losartan (COZAAR) 50 mg tablet Take 1 tablet (50 mg total) by mouth daily 90 tablet 3 4 025 Active blood glucose diagnostic (Prodigy No Coding) stripIndicatio ns:Type 2 diabetes mellitus without complication, without long-term current use of insulin (HCC) USE TO TEST BLOOD SUGAR THREE (3) TIMES DAILY 300 strip 4 4 Active bisacodyl EC (DULCOLAX EC) 5 mg EC tabletIndicati ons:constipati on Take 1 tablet (5 mg total) by mouth daily as needed for constipation 4 tablet 4 Active Sure Comfort Pen Needle 31 gauge x 5/16 needle Use as directed with insulin 300 each 3 4 Active sucralfate (CARAFATE) 1 gram tablet Take 1 tablet (1 g total) by mouth 2 (two) times a day for 26 doses 26 tablet 4 Active aspirin 81 mg enteric coated tablet Take 1 tablet (81 mg total) by mouth daily 90 tablet 1 4 Active glimepiride (AMARYL) 4 mg tabletIndicati ons:type 2 diabetes mellitus Take 1 tablet (4 mg total) by mouth daily before breakfast 90 tablet 4 4 Active atorvastatin (LIPITOR) 40 mg tablet TAKE 1 TABLET(40 MG) BY MOUTH DAILY 90 tablet [address] (CYMBALTA) 30 mg capsuleIndicat ions:Chronic bilateral low back pain without sciatica Take 1 capsule (30 mg total) by mouth 2 (two) times a day 180 capsule 4 5 026 Active Januvia 100 mg tablet 4 Active oxyCODONE (ROXICODONE) 5 mg immediate release tabletIndicati ons:Pain Take 3 tablets (15 mg total) by mouth 3 (three) times a day 90 tablet [address] (PROTONIX) 40 mg EC tabletIndicati ons:Treatment of Non-Bleeding Gastric Disorder Take 1 tablet (40 mg total) by mouth 2 (two) times a day 180 tablet 1 5 Active traZODone (DESYREL) 150 mg tablet Take 1 tablet (150 mg total) by mouth nightly 30 tablet 5 Active metoprolol XL (TOPROL-XL) 50 mg extended release tabletIndicati ons:Hypertensi on associated with diabetes (HCC) Take 1 tablet (50 mg total) by mouth daily 90 tablet 3 5 Active gabapentin (NEURONTIN) 300 mg capsule Take 1 capsule (300 mg total) by mouth 3 (three) times a day 270 capsule 3 5 026 Active furosemide (LASIX) 20 mg tablet Take 1 tablet (20 mg total) by mouth daily 90 tablet 1 5 Active furosemide (LASIX) 20 mg tablet Take 1 tablet (20 mg total) by mouth daily 90 tablet 3 4 025 Discontin ued(Reord er) Active Problems Problem Noted Date Diagnosed Date Status post Mohs surgery 03/14/2024 Assessment & Plan (03/14/2024 2:35 PM MANAGER TRAINEE): Dressing dry and intact. Can return later this week for nurse visit to assist with the dressing removal. Hospital discharge follow-up 03/14/2024 Assessment & Plan (03/14/2024 2:35 PM MANAGER TRAINEE): I, Jennifer Trujillo NP have personally reviewed pertinent inpatient and/or ED records, including discharge medications and [employer] if applicable. This patient's discharge medication list has been reviewed and reconciled with her outpatient medication list and has also been reviewed with patient and/or caregiver. I have noted any changes. Hematemesis with nausea 03/08/2024 Gastroenteritis 03/08/2024 Duodenal ulcer 01/13/2024 Assessment & Plan (01/13/2024 12:45 PM CDT): EGD completed on 01/09. Esophagus with scattered patchy white areas were biopsied with concerns for Barbie. Gastric body erythematous. Duodenal ulcer thought likely the etiology for melena. Pathology results not yet available. She has continued Protonix 40 mg b.i.d. denies any ongoing blood in stools or black tarry stools. No vomiting or abdominal pain. History of duodenal ulcer 05/26/2023 Acute constipation 05/26/2023 Abdominal pain 05/26/2023 Assessment & Plan (07/13/2024 9:37 AM CDT): Resolved. Continue pantoprazole 40 mg twice daily with good response. Atypical chest pain 04/12/2023 Chills 04/12/2023 Contusion of forearm, right 04/12/2023 Contusion of head 04/12/2023 Contusion of hip, right 04/12/2023 Chronic migraine without aur a without status migrainosus, not intractable 03/19/2023 Encounter for annual wellness exam in Medicare p atient 12/01/2022 Assessment & Plan (01/13/2024 1:09 PM CDT): Preventative exam; reviewed screenings and vaccinations. Will get COVID booster and shingles vaccine at local pharmacy. Up-to-date on colonoscopy. Bone density scan ordered today. Assessment & Plan (12/01/2022 9:21 AM CDT): Preventive exam; reviewed recommended preventive screenings and vaccinations. Encourage annual flu vaccine. Hyperlipidemia associated with type 2 diabetes scot laurent 12/01/2022 Assessment & Plan (07/13/2024 9:37 AM CDT): Stable; continue atorvastatin 40 mg daily. Assessment & Plan (05/26/2024 8:17 AM MANAGER TRAINEE): This is a chronic condition which is at goal . Goal is LDL less than 70 Continue atorvastatin Encouraged to eat healthy, include fresh fruits and vegetables daily and avoid eating fried foods more than once per week. Assessment & Plan (01/24/2024 9:05 AM CDT): This is a chronic condition which is at goal. Goal is less than 140/90 Continue atorvastatin Encouraged to monitor weight and B/P at home. Assessment & Plan (09/22/2023 9:42 AM CDT): This is a chronic condition which is at goal . Goal is LDL less than 70 Continue atorvastatin Encouraged to eat healthy, include fresh fruits and vegetables daily and avoid eating fried foods more than once per week. Encouraged to take medications as prescribed. Assessment & Plan (06/21/2023 10:24 AM CDT): This is a chronic condition which is at goal of LDL less than 70 Continue atorvastatin Encouraged to eat healthy, include fresh fruits and vegetables daily and avoid eating fried foods more than once per week. Encouraged to take medications as prescribed. Assessment & Plan (06/11/2023 5:10 PM MANAGER TRAINEE): LDL at goal of less than 70. No changes made today. Continue atorvastatin 40 mg daily. Assessment & Plan (12/24/2022 10:01 AM CDT): This is a chronic condition which is at goal of LDL less than 70 Continue atorvastatin. Encouraged to eat healthy, include fresh fruits and vegetables daily and avoid eating fried foods more than once per week. Encouraged to take medications as prescribed. Assessment & Plan (12/01/2022 9:31 AM CDT): Continues atorvastatin 40 mg daily, denies any medication side effects. Well woman exam 08/27/2022 Overview (09/04/2022): Lab: Pap:all normal Pcp follows labs Surekha:2021 Colonoscopy:2021 BMD:she states normal. Dr. Nguyen follow Assessment & Plan (09/04/2022 6:31 AM CDT): Complete exam done Stress incontinence 08/27/2022 Assessment & Plan (12/01/2022 9:21 AM CDT): Following with urology. Assessment & Plan (2022 9:36 AM CDT): Options discussed She is worried about anesthesia as she had a hard time waking up last time with her stomach surgery Will refer to Dr. Wilkerson for her options She declines trial of anticholinergics. Assessment & Plan (09/04/2022 6:33 AM CDT): Will follow as she is stable and does not want treatment at this time. We discussed routine emptying of the bladder so that there will be less to leak when she does Unstable angina 01/12/2022 Contact dermatitis 03/26/2021 Blood in stool 05/27/2020 Assessment & Plan (05/27/2020 3:09 PM MANAGER TRAINEE): Referral to [facility]. Contact info given. Aware to call them if she has not heard from them in the next few days. Has not had any blood in stool since this morning. Will have CBC drawn today. Discussed red flags; what would warrant ED for more emergent eval. BMI 24.0-24.9, adult 05/27/2020 Assessment & Plan (12/24/2022 10:02 AM CDT): 9lb weight gain since last office visit Encouraged healthy eating and activity. Assessment & Plan (06/02/2022 8:37 AM MANAGER TRAINEE): At goal Continue exercise at [facility] Continue with health eating. Assessment & Plan (01/29/2022 8:32 AM CDT): At goal Assessment & Plan (05/27/2020 3:09 PM MANAGER TRAINEE): Discussed healthy diet and importance of regular physical activity. BMI is acceptable for this patient. Type 2 diabetes mellitus wit h diabetic polyneuropathy, with long-term current use of insulin 04/25/2020 Assessment & Plan (07/13/2024 9:38 AM CDT): Following with Endocrinology. A1c has been at goal. Doing well with Lantus 14 units nightly and glimepiride 4 mg daily. Assessment & Plan (05/26/2024 8:18 AM MANAGER TRAINEE): This is a chronic condition which is improving, at goal . Goal is less than 7- 8%. Personally reviewed most recent A1c - Lab Results Component Value Date HGBA1C 7.3 05/26/2024 Personally reviewed POC blood sugar- elevated, not at goal of 80-180 Lab Results Component Value Date POCGLU 258 05/26/2024 Medication- continue Lantus 14 units nightly, continue glimeperide 4mg daily in am, continue januvia 100mg po daily. Neuropathy stable on current dose of gabapentin Continue gabapentin Monitor blood sugar 2 times a day. Encouraged annual eye exam. last dilated eye exam was with Dr. Davis eGFR- 87 Kidney function-normal at goal Urine microalbumin/creatinine ratio - at goal. Goal is <30 Continue Lasix, losartan, metoprolol Assessment & Plan (01/24/2024 9:04 AM CDT): This is a chronic condition which is at goal without hypoglycemia . Goal is less than 7-8%. Personally reviewed most recent A1c - Lab Results Component Value Date HGBA1C 7.7 01/24/2024 Personally reviewed POC blood sugar- not at goal of 80-180 Lab Results Component Value Date POCGLU 201 01/24/2024 Medication- continue Lantus 14 units nightly, continue glimeperide 4mg daily in am, continue januvia 100mg po daily. Monitor blood sugar 2 times a day. Monofilament foot exam completed. Protective senses intact Continue - Gabapentin eGFR- 68 Kidney function-normal Urine microalbumin/creatinine ratio - at goal. Goal is <30 Continue Lasix, losartan Assessment & Plan (01/05/2024 10:04 AM CDT): Good readings at home for the most part. Will continue Januvia, Lantus. Continue monitoring glucose at home. Red flags reviewed. Assessment & Plan (10/11/2023 5:44 PM CDT): Managed by endocrinology. Lab Results Component Value Date HGBA1C 7.4 09/22/2023 HGBA1C 7.9 06/11/2023 HGBA1C 7.7 (H) 01/01/2023 Continue statin and Arb. Blood pressure is well controlled. Assessment & Plan (09/22/2023 9:41 AM CDT): This is a chronic condition which is improving, and at goal . Goal is less than 7-8%. Personally reviewed most recent A1c - Lab Results Component Value Date HGBA1C 7.4 09/22/2023 Personally reviewed POC blood sugar- not at goal of 80-180 Lab Results Component Value Date POCGLU 194 09/22/2023 Medication- continue Lantus 14 units nightly, glimeperide 4mg daily in am, continue januvia 100mg po daily. Monitor blood sugar daily. Encouraged annual eye exam. Monofilament foot exam completed. Loss of protective senses. Treated with gabapentin. Stable neuropathy on current dose Personally reviewed CMP eGFR- 88 Kidney function- at goal Urine microalbumin/creatinine ratio - at goal. Goal is <30 Continue Lasix, losartan, metoprolol Assessment & Plan (06/21/2023 10:23 AM CDT): This is a chronic condition which is poorly controlled inadequately controlled or out of control improving worsening not at goal of less than 7%. Personally reviewed most recent A1c - Lab Results Component Value Date HGBA1C 7.9 06/11/2023 Personally reviewed POC blood sugar- not at goal 80-180 Lab Results Component Value Date POCGLU 202 06/21/2023 Medication- continue Lantus 14 units nightly. stop Glyburide 5mg po 2xdaily change to glimeperide 4mg daily in am, continue januvia 100mg po daily. Monitor blood sugar 2 times a day. Encouraged annual eye exam. Monofilament foot exam completed. protective senses intact Treated with Gabapentin Personally reviewed CMP eGFR- 88 Kidney function- abnormal Urine microalbumin/creatinine ratio - at goal <30 treated with losartan, Lasix, metoprolol B/P today- at goal of <140/90. continue Lasix, losartan, metoprolol Personally reviewed lipid panel. at Goal of less than 70. Continue atorvastatin Assessment & Plan (06/11/2023 5:10 PM MANAGER TRAINEE): Lab Results Component Value Date HGBA1C 7.9 06/11/2023 HGBA1C 7.7 (H) 01/01/2023 HGBA1C 8.2 09/30/2022 Slight increase in A1c, patient continue checking blood glucose daily at home. Continue eating several small meals frequently throughout the day. Denies any signs/symptoms of hyper/hypoglycemia. No change in medications made today. Current medications: Currently taking insulin 12 units nightly Januvia 100 mg Glyburide 5 mg Assessment & Plan (12/24/2022 10:00 AM CDT): This is a chronic condition which is not at goal of less than 8%. Personally reviewed most recent A1c - Lab Results Component Value Date HGBA1C 8.2 09/30/2022 Personally reviewed POC blood sugar- at goal 80-180 Lab Results Component Value Date POCGLU 166 12/24/2022 Medication- Continue Lantus 14 units nightly. Glyburide 5mg po 2xdaily, continue januvia 100mg po daily. Monitor blood sugar 2 times a day. Encouraged annual eye exam. Monofilament foot exam completed. protective senses intact Treated with Gabapentin Personally reviewed CMP eGFR- 68 Kidney function- normal Urine microalbumin/creatinine ratio - at goal <30 treated with losartan B/P today- at goal of <140/90. continue losartan Personally reviewed lipid panel. at Goal of less than 70. Continue atorvastatin. Assessment & Plan (12/01/2022 9:19 AM CDT): No changes in current medication regimen, patient's diabetes is managed by her welfare project manager. Last A1c = 8.2% -Lantus 14 units nightly -glyburide 5 mg b.i.d. -Januvia 100 mg daily Assessment & Plan (09/30/2022 8:46 AM CDT): This is a chronic condition which is worsening not at goal of less than 7%. Personally reviewed most recent A1c - Lab Results Component Value Date HGBA1C 8.2 09/30/2022 Personally reviewed POC blood sugar- not at goal 80-180 Lab Results Component Value Date POCGLU 290 09/30/2022 Medication- continue Lantus 14 units nightly. Glyburide 5mg po daily, add januvia 100mg po daily. Monitor blood sugar 2-3x times a day. Encouraged annual eye exam. She had her cataracts removed. Monofilament foot exam completed. protective senses intact Reports numbness- treated with gabapentin. Personally reviewed CMP eGFR- 68 Kidney function- normal Urine microalbumin/creatinine ratio - repeated. at goal <30 treated with losartan and metoprolol B/P today- at goal of <140/90. continue losartan and metoprolol Personally reviewed lipid panel. at Goal of less than 70. Continue atorvastatin Assessment & Plan (06/02/2022 8:36 AM MANAGER TRAINEE): This is a chronic condition which is stable, controlled, at goal of less than 8%. Personally reviewed A1c today- 7.7% Personally reviewed blood sugar -136. At goal 80-180 Medication- continue Lantus 14 units nightly Monitor blood sugar 2xtimes a day. Encouraged annual eye exam. l Monofilament foot exam completed, protective senses intact. Reports numbness- treated with gabapentin. Urine microalbumin/creatinine ratio - <7, at goal <30 Personally reviewed labs: CMP, GFR- 93 Kidney function- normal B/P today- at goal of less than 140/90, continue losartan, metoprolol. Personally reviewed LDL -90, Not at Goal of less than 70, continue atorvastatin. No history of macrovascular disease - CVA, [place]. Assessment & Plan (01/29/2022 8:31 AM CDT): This is a chronic condition which is stable, controlled, at goal. Personally reviewed A1c today- 7.8% at goal less than 8% Personally reviewed blood sugar -136. At goal 80-180 Medication- continue Lantus 14 units nightly Monitor blood sugar 2xtimes a day. Encouraged annual eye exam. l Monofilament foot exam completed, protective senses intact. Reports numbness- treated with gabapentin. Urine microalbumin/creatinine ratio - 21 currently on , goal <30 Personally reviewed labs: CMP, GFR- 93 Kidney function- normal B/P today- at goal, continue losartan, metoprolol. At Goal blood pressure is <140/90. Personally reviewed LDL -90, currently on atorvastatin. Not at Goal of less than 70 No history of macrovascular disease - CVA, [place]. Assessment & Plan (10/21/2021 9:45 AM CDT): This is a chronic condition which is stable, controlled, at goal. Personally reviewed A1c today- 7.3% at goal less than 8% Personally reviewed blood sugar -134. At goal 80-180 Medication- continue Lantus 14 units nightly Monitor blood sugar 2xtimes a day. Encouraged annual eye exam. l Monofilament foot exam completed, protective senses intact. Reports numbness- treated with gabapentin. Urine microalbumin/creatinine ratio - 21 currently on , goal <30 Personally reviewed labs: BUN- 12 , creatinine- 0.67 GFR- 89 Kidney function- normal B/P today- 146/76 decreased to 116/70 after 5 minutes of rest. continue on losartan, metoprolol. At Goal blood pressure is <140/90 and as close to 120/80 as possible. Personally reviewed LDL - 20, currently on atorvastatin. At Goal of less than 70 No history of macrovascular disease - CVA, [place]. Assessment & Plan (07/16/2021 12:05 PM CDT): This is a chronic condition which is stable, controlled, at goal. Personally reviewed A1c today- 7.3% at goal less than 8% Personally reviewed blood sugar 201. At goal 80-180 Medication- continue Lantus 14 units nightly Monitor blood sugar 2xtimes a day. Encouraged annual eye exam. l Monofilament foot exam completed, protective senses intact. Reports numbness- treated with gabapentin. Urine microalbumin/creatinine ratio - 21 currently on , goal <30 Personally reviewed labs: BUN- 12 , creatinine- 0.67 GFR- 89 Kidney function- normal B/P today- 124/60 , currently on losartan, metoprolol. At Goal blood pressure is <140/90 and as close to 120/80 as possible. Personally reviewed LDL - 20, currently on atorvastatin. At Goal of less than 70 No history of macrovascular disease - CVA, [place]. Assessment & Plan (04/16/2021 10:26 AM MANAGER TRAINEE): This is a chronic condition which is stable, controlled, t at goal. Personally reviewed A1c today- 7.1% at goal less than 8% Personally reviewed blood sugar 217. At goal 80-180 Medication- Stop glyburide due to history of hypoglycemia. Increase Lantus 14 units nightly Monitor blood sugar 2xtimes a day. Encouraged annual eye exam. l Monofilament foot exam completed, protective senses intact. Reports numbness- treated with gabapentin. Urine microalbumin/creatinine ratio - 21 currently on , goal <30 Personally reviewed labs: BUN- 12 , creatinine- 0.67 GFR- 89 Kidney function- normal B/P today- 142/78 , currently on losartan, metoprolol. At Goal blood pressure is <140/90 and as close to 120/80 as possible. Personally reviewed LDL - 20, currently on atorvastatin. At Goal of less than 70 No history of macrovascular disease - CVA, [place]. GI bleed due to NSAIDs 02/29/2020 Assessment & Plan (03/14/2024 2:34 PM MANAGER TRAINEE): No recurrent hemoptysis. H&H is stable. Continue with pantoprazole and sucralfate. Red flags reviewed. Assessment & Plan (01/05/2024 10:05 AM CDT): Black tarry stools. Will have CBC today. Refer to GI. Hold aspirin for now. Also took a round of Augmentin recently. If loose stools continue or worsen let us know and we will order stool cultures. We reviewed red flags which would warrant return to ED. She is in agreement with plan and states understanding. Assessment & Plan (05/27/2020 3:09 PM MANAGER TRAINEE): Referral to [facility]. Contact info given. Aware to call them if she has not heard from them in the next few days. Has not had any blood in stool since this morning. Will have CBC drawn today. Discussed red flags; what would warrant ED for more emergent eval. TIA (transient ischemic attack) 11/23/2019 Chronic diffuse otitis externa of left ear 11/20 Assessment & Plan (11/21/2019 1:41 PM CDT): Avoid ear cleaning techniques Avoid water to ears Doc's Proplugs Richard's Ear plugs Vinegar and water recipe discussed and Handout provided Chronic bilateral low back pain without sciatica 08/24/2019 Assessment & Plan (07/13/2024 9:39 AM CDT): Chronic; changes in pain levels. Continue duloxetine 30 mg twice daily as well p.r.n. oxycodone. Unable to take NSAIDs due to history of GI bleed. Patient is very active, denies any bowel or bladder disturbance. Assessment & Plan (10/11/2023 5:45 PM CDT): Continues to be very active. Denies any bowel or bladder disturbance. Currently working with PT for balance/gait and feels this has helped her back pain some. Unable to take NSAIDs with hx of GI bleed. Previously taking oxycodone 15 mg tid, states she has been out of her medication for the past 1 month. Per patient, last refill of oxycodone was 08/12 (brings bottle with her today). She reports not taking any oxycodone after the first week of September. Medication was refilled 09/10/23 but patient states that this was never picked up, will verify with pharmacy. If patient not taking, will decrease to 5 mg tid. Explained to patient that this is a high-risk medication, increases fall risk as well as contributes to constipation which has been problematic for patient in the past. Currently taking duloxetine 30 mg daily, will increase to b.i.d. dosing Assessment & Plan (08/24/2019 3:28 PM CDT): Has not been taking any otc pain relievers. Ibuprofen 600mg tid prn sent. Aware to take w/food. Encouraged otc tylenol/ibuprofen prn back pain. Discussed ice, gentle ROM, increased activity/core strengthening & other non pharm methods of pain relief. Denies bowel/bladder dysfunction. Denies cauda equina. Reviewed red flags. To call/rtc if no improvement. Discussed back stretches/exercises. Dysfunction of both eustachian tubes 06/10/2018 Assessment & Plan (06/10/2018 9:07 AM MANAGER TRAINEE): Nasal saline followed by Flonase 2 sprays into each nostril while looking down over the sink, do not sniff in or blow nose after use. Zpak Chronic otitis media of both ears with effusion 06/10/2018 Assessment & Plan (07/11/2018 10:41 AM CDT): Continue Flonase Consider Left ear tube placement in the Office or Operating Room Risks and complications discussed including anesthesia, bleeding, infection, hearing loss, ear tubes may fall out early, fall inwards, stay in longer than a few years, get clogged, fall out and leave a hole in the ear drum that would need to be patched, drain clear fluid. She would prefer to do this in the morning in the Operating Room due to Diabetes Assessment & Plan (06/10/2018 9:07 AM MANAGER TRAINEE): Nasal saline followed by Flonase 2 sprays into each nostril while looking down over the sink, do not sniff in or blow nose after use. Zpak Hearing test right before follow up in one month Impacted cerumen of right ear 06/10/2018 Assessment & Plan (06/10/2018 9:08 AM MANAGER TRAINEE): Avoid ear cleaning techniques Hearing loss 06/10/2018 Assessment & Plan (06/10/2018 9:08 AM MANAGER TRAINEE): Hearing test right before follow up in one month Diarrhea 03/24/2017 Assessment & Plan (05/27/2020 3:09 PM MANAGER TRAINEE): Had diarrhea this morning. Stopped after anti-diarrhea med. Aware to push fluids. Assessment & Plan (09/22/2017 2:53 PM CDT): Early this year but self-limited, now she is back to her baseline. Patient to see me as needed basis. She does not need a colonoscopy until 2024 (last one 2014 and normal without polyps) only if she is willing given age. Assessment & Plan (03/25/2017 1:12 PM MANAGER TRAINEE): No laxative abuse noted. Will evaluate stool for multiple organisms and Labs. May need a colonoscopy if labs do not show anything. Other considerations are Chronic Inflammatory Diarrhea, IBS, IBD. Osteoarthritis of spine with radiculopathy, cerv ical region 12/08/2016 Assessment & Plan (03/25/2017 12:58 PM MANAGER TRAINEE): Controlled. Continue with Daily Meloxicam. Pt does try to swim Hypertension associated with type 2 diabetes matilde litus 08/19/2013 Overview (07/10/2016): HYPERTENSION NOS Assessment & Plan (07/13/2024 9:36 AM CDT): Blood pressure 130s-140 systolic, heart rate consistently 90s. Will increase metoprolol from 25 mg daily to 50 mg daily and monitor response. Continue furosemide 20 mg daily. Denies any shortness breath or lower extremity swelling. She denies any chest pain, palpitations or dizziness. States feeling well, will continue to monitor. She is aware to return to ER if experiencing any chest pain/pressure or dizziness. Assessment & Plan (05/26/2024 8:17 AM MANAGER TRAINEE): This is a chronic condition which is At goal. Goal is less than 140/90 Continue lasix, losartan, metoprolol Encouraged to monitor weight and B/P at home. Assessment & Plan (05/26/2024 7:46 AM MANAGER TRAINEE): >>ASSESSMENT AND PLAN FOR HYPERTENSION ASSOCIATED WITH DIABETES (HCC) WRITTEN ON 03/14/2024 2:34 PM BY JENNIFER TRUJILLO NP Stable metoprolol, losartan. Will continue to monitor. Assessment & Plan (01/24/2024 9:05 AM CDT): This is a chronic condition which is at goal. Goal is less than 140/90 Continue Lasix and losartan Encouraged to monitor weight and B/P at home. Assessment & Plan (01/13/2024 1:10 PM CDT): Blood pressure is well controlled; continue losartan 50 mg daily. BP today 122/70. Assessment & Plan (01/05/2024 10:03 AM CDT): Stable. Continue metoprolol, losartan. Will continue to monitor. Assessment & Plan (10/11/2023 2:23 PM CDT): Blood pressure is well controlled, continue present management with losartan and metoprolol. Assessment & Plan (09/22/2023 9:42 AM CDT): This is a chronic condition which is elevated on arrival. At goal after 15 minutes of rest. Goal is less than 140/90 Personally reviewed labs. Continue Lasix, losartan, metoprolol Encouraged to monitor weight and B/P at home. Explained correct way to take blood pressure. - After 5 minutes of sitting calmly with arm supported. Encouraged to void caffeine and excessive alcohol consumption as this will elevate B/P Encouraged to take medications as prescribed. Assessment & Plan (06/21/2023 10:24 AM CDT): This is a chronic condition which is at goal of less than 140/90 Personally reviewed labs. Continue losartan, metoprolol, Lasix Encouraged to monitor weight and B/P at home Encouraged to take medications as prescribed. Assessment & Plan (06/11/2023 5:09 PM MANAGER TRAINEE): Blood pressure is well controlled, no change in current medication regimen. Continue losartan 50 mg daily and metoprolol 25 mg daily. Assessment & Plan (09/30/2022 8:46 AM CDT): This is a chronic condition which is at goal of less than 140/90 Personally reviewed labs. Continue metoprolol and losartan Encouraged to void caffeine and excessive alcohol consumption as this will elevate B/P Encouraged to monitor weight and B/P at home Explained correct way to take blood pressure. - After 5 minutes of sitting calmly with arm supported. Encouraged to take medications as prescribed. Assessment & Plan (06/02/2022 8:37 AM MANAGER TRAINEE): This is a chronic condition which is at goal of <140/90 Personally reviewed labs. continue on losartan, metoprolol. Encouraged to Avoid caffeine, caffeine will raise blood pressure and excessive alcohol consumption. Monitor your weight and B/P. Encouraged to take medications as prescribed. Assessment & Plan (01/29/2022 8:32 AM CDT): This is a chronic condition which is at goal Goal is <140/90 Personally reviewed labs. continue on losartan, metoprolol. Encouraged to Avoid caffeine, caffeine will raise blood pressure and excessive alcohol consumption. Monitor your weight and B/P. Encouraged to take medications as prescribed. Assessment & Plan (10/21/2021 9:45 AM CDT): This is a chronic condition which is at goal after rest. Goal is <140/90 Personally reviewed labs. B/P today- 146/76 decreased to 116/70 after 5 minutes of rest. continue on losartan, metoprolol. At Goal blood pressure is <140/90 and as close to 120/80 as possible.Avoid caffeine, caffeine will raise blood pressure and excessive alcohol consumption. Monitor your weight and B/P. Encouraged to take medications as prescribed. Assessment & Plan (07/16/2021 12:05 PM CDT): This is a chronic condition which is at goal Goal is <140/90 Personally reviewed labs. B/p 124/60 On losartan and metoprolol Avoid caffeine, caffeine will raise blood pressure and excessive alcohol consumption. Monitor your weight and B/P. Encouraged to take medications as prescribed. Assessment & Plan (04/16/2021 10:27 AM MANAGER TRAINEE): This is a chronic condition which is not at goal Goal is <140/90 Personally reviewed labs. B/p 142/78 On losartan and metoprolol Avoid caffeine, caffeine will raise blood pressure and excessive alcohol consumption. Monitor your weight and B/P. Encouraged to take medications as prescribed. Assessment & Plan (03/25/2017 12:56 PM MANAGER TRAINEE): Hypertension is improving with treatment. Continue current treatment regimen. Dietary sodium restriction. Regular aerobic exercise. Continue current medications. Blood pressure will be reassessed at the next regular appointment Lifestyle changes can help you control and prevent high blood pressure, even if you're taking blood pressure medication. Here's what you can do: Eat healthy foods. Eat a healthy diet. Try the Dietary Approaches to Stop Hypertension (DASH) diet, which emphasizes fruits, vegetables, whole grains, poultry, fish and low-fat dairy foods. Get plenty of potassium, which can help prevent and control high blood pressure. Eat less saturated fat and trans fat. Decrease the salt in your diet. A lower sodium level -- 1,500 milligrams (mg) a day -- is appropriate for people 51 years of age or older, and individuals of any age who are black or who have hypertension, diabetes or chronic kidney disease. Maintain a healthy weight. Keeping a healthy weight, or losing weight if you're overweight or obese, can help you control your high blood pressure and lower your risk of related health problems. If you're overweight, losing even 5 pounds (2.3 kilograms) can lower your blood pressure. Increase physical activity. Regular physical activity can help lower your blood pressure, manage stress, reduce your risk of several health problems and keep your weight under control. Limit alcohol. Even if you're healthy, alcohol can raise your blood pressure. If you choose to drink alcohol, do so in moderation. For healthy adults, that means up to one drink a day for women of all ages and men older than age 65, and up to two drinks a day for men age 65 and younger. One drink equals 12 ounces of beer, 5 ounces of wine or 1.5 ounces of 80-proof liquor. Don't smoke. Tobacco injures blood vessel elder and speeds up the process of hardening of the arteries. If you smoke, ask your doctor to help you quit. Manage stress. Reduce stress as much as possible. Practice healthy coping techniques, such as muscle relaxation, deep breathing or meditation. Getting regular physical activity and plenty of sleep can help, too. Notify the office for blood pressure greater than 140/90 Continue Furosemide. Although BP elevated today, Pt states it is usually controlled 130-140/80's. Encouraged patient to monitor. . Personal history of other malignant neoplasm of skin 09/14/2012 Insomnia 08/06/2011 Overview (07/08/2016): Insomnia Assessment & Plan (03/25/2017 1:05 PM MANAGER TRAINEE): Pt. Not taking Trazadone as prescribed by Dr. Reeves. Will f/u with Dr. Reeves on 06/08/17. Defer to him for now. Resolved Problems Problem Noted Date Diagnosed Date Resolved Date BMI 25.0-25.9,adult 08/24/2019 05/27/19 Assessment & Plan (08/24/2019 3:27 PM CDT): Discussed healthy diet and importance of regular physical activity. BMI is acceptable for this patient. Type 2 diabetes mellitus 08/19/2013 Overview (07/08/2016): DMII WO CMP NT ST UNCNTR Assessment & Plan (08/24/2019 3:45 PM CDT): Lab Results Component Value Date HGBA1C 6.3 07/04/2019 HGBA1C 6.2 03/08/2019 HGBA1C 6.5 (H) 06/08/2018 Reviewed well controlled A1c readings in past year. Discussed stress she is feeling d/t common law 's recent . Has been fluctuating amount of lantus that she takes. Stressed to take consistent dose to see what her levels are. Stressed need to increase physical activity as tolerated. Reviewed diet: needs to decrease carb intake. To continue to monitor BG but NOT 6-7 x/day. Will call if readings do not decrease back under 200. Relates that she's had eye exam since New year w/Dr Davis. Letter sent to his office for copy of recent results. Diabetes mellitus 12/06/2012 04/16/2021 Overview (07/11/2016): Diabetes mellitus Assessment & Plan (03/25/2017 1:04 PM MANAGER TRAINEE): Diabetes is improving with treatment. Continue current treatment regimen. Reminded to bring in blood sugar diary at next visit. Dietary recommendations for ADA diet. Regular aerobic exercise. Discussed ways to avoid symptomatic hypoglycemia. Discussed sick day management. Discussed foot care. Diabetes will be reassessed in 6 months Pt. Does see an welfare project manager. Will get scheduled for an eye exam. Last A1C on 01/22/17 was 6.0. Microalbumia/Cret ratio 5. Encounters Date Type Department Care Team Description 07/13/2024 9:00 AM CDT Office Visit [facility] [address] [address] Marii Villatoro NP Hypertension associated with type 2 diabetes mellitus (HCC) (Primary Dx); Hyperlipidemia associated with type 2 diabetes mellitus (HCC); Type 2 diabetes mellitus with diabetic polyneuropathy, with long-term current use of insulin (HCC); Hypertension associated with diabetes (HCC); Abdominal pain; Chronic bilateral low back pain without sciatica; BMI 24.0-24.9, adult 07/10/2024 [facility] [address] [address] Katrin Carranza MA 07/07/2024 9:00 AM CDT Office Visit [facility] [address] [place] [address] Sonia Reeves MD White matter disease (Primary Dx); Chronic migraine without aura without status migrainosus, not intractable; Primary insomnia 07/07/2024 [facility] [address] [address] Katrin Carranza MA 07/06/2024 9:53 AM CDT - 07/06/2024 3:02 PM CDT Emergency [facility] Emergency Department [address] [place] [address] Mariama Carrillo MD Abdominal pain, epigastric (Primary Dx) Discharge Disposition: Discharge to home or self care 07/06/2024 8:45 AM CDT Office Visit [facility] [place] [address] [place] [address] Yandy Belle NP Tachycardia (Primary Dx); Abrasion 06/07/2024 9:00 AM MANAGER TRAINEE Office Visit [facility] [address] [place] [address] [address] [place] [id number] Magan Kim NP Primary osteoarthritis of right knee (Primary Dx) 06/05/2024 Telephone [facility] [address] [place] [address] [address] [place] [phone] Magan Kim NP from Last 3 Months Immunizations Immunization Administration Dates Next Due COVID-19 MRNA (MODERNA) .5 M L (50 MCG) VACCINE (12 YEARS AND UP) 01/27/2023 Influenza Virus Vaccine Trivalent Mdv 01/02/2018 Influenza, Quadrivalent, Hig h Dose, Preservative Free, Intrr 01/02/2023,01/03/2022,12/06/2020,12/08 Influenza, Quadrivalent, Spl it, Preservative Free, Intramuscular 01/05/2015 Influenza, Split 12/04/2009 Influenza, Trivalent, Adjuva nted, Intramuscular 01/03/2018,01/02/2018 Influenza, Trivalent, High D ose, Split, Preservative Free, Intramuscular 01/05/2024,12/30/2018,12/08/2016,12/08,12/27/2015,12/27/2015,01/08/2015 ,01/08/2015,01/05/2014,01/05/2014 Influenza, Trivalent, IM (MDV) 4,01/05/2014,01/05/2013,01/05,01/01/2012,12/20/2008 Influenza, Unspecified 03/09/2022(Deferr ed: Patient Refused),12/21/2020,12/14/2019, 019,01/03/2018,12/08/2016 Ravinder (J&J) SARS-CoV-2 Vaccination 06/11/2020 Pneumococcal Conjugate PCV 13 06/24/2017, 015,07/08/2014 Pneumococcal Polysaccharide PPV23 12/30/2012 Td, Not Adsorbed 07/15/2019 ZOSTER LIVE 04/16/2014,04/16/2014 Surgical History Surgery Date Site/Laterality Comments EMBOLIZATION VASCULAR EXTRAVASATION ARTERIAL VENOUS OR LYMPHATIC 03/02/2020 N/A COLONOSCOPY 02/26/2015 EYE SURGERY UPPER GASTROINTESTINAL ENDOSCOPY MOHS SURGERY 03/13/2024 Left behind left ear, [facility] [place] Medical History Medical History Date Comments Hypertension Hypertension Hyperlipidemia Hyperlipidemia Hx Other Medical 1987 DM type 2 w/o c omp. Hx Other Medical Gastric ulcer Diabetes mellitus (HCC) Diabetes Hx Other Medical Gastroesophagea l reflux disease Hx Other Medical 2011 Basal cell canc er of leg right leg and nose Hx Other Medical osteoarthritis Hx Other Medical back pain Hx Other Medical basal cell canc er Peptic ulceration GERD (gastroesophageal reflux disease) Chronic constipation Type 2 diabetes mellitus (HCC) Family History Medical History Relation Name Comments Prostate cancer Brother 3 Diabetes Brother 5 Diabetes mellit us; Prostate cancer Brother 6 Cancer -pros jay; Cause of : Cancer -prostate Diabetes type II Mother D M Type II ; /Diabetes mellitus type 2; Liver disease Mother Liver disease; Cause of : Liver disease Diabetes Other 1 Family history of Diabetes mellitus; Hypertension Other 1 Heart disease Other 2 Family history of Heart disease; Arthritis Other 3 Family history of arthritis; Cancer Neg Hx no breast or gy n cancer cmt 08/27/22 Relation Name Status Comments Brother 1 Brother 2 (Age 79) Brother 3 Brother 4 Brother 5 Brother 6 Mother (Age 76) Other 1 Other 2 Other 3 Social History Tobacco Use Types Packs/Day Years Used Date Smoking Tobacco: Never Smokeless Tobacco: Never Tobacco Cessation:Counseling Given: Not Answered Alcohol Use Standard Drinks/Week Comments Yes 0 (1 standard drink = 0.6 oz pur e alcohol) Occassional beer; 4/week [facility] [employer] Answer Date Recorded In the past 12 months has e [employer], gas, oil, or water [employer] threatened to shut off services in your home? No 03/09/2024 Humiliation, Afraid, Rape, and Kick questionnair e Answer Date Recorded Within the last year, have y ou been afraid of your partner or ex-partner? No 08/27/2022 Within the last year, have y ou been humiliated or emotionally abused in other ways by your partner or ex-partner? No Within the last year, have y ou been kicked, hit, slapped, or otherwise physically hurt by your partner or ex-partner? No 08/27/2022 Within the last year, have y ou been raped or forced to have any kind of sexual activity by your partner or ex-partner? No 08/27/2022 Social Connection and Isolat ion Panel [NHANES] Answer Date Recorded In a typical week, how many times do you talk on the phone with family, friends, or neighbors? More than three times a week 03/09/2024 How often do you get togethe r with friends or relatives? More than three times a week 03/09/2024 How often do you attend chur or hinduism services? More than 4 times per year 03/09/2024 Do you belong to any clubs o r organizations such as holiness groups, unions, fraternal or athletic groups, or school groups? No 03/09/2024 How often do you attend meet ings of the clubs or organizations you belong to? Never 03/09/2024 Are you , , di vorced, , never , or living with a partner? 03/09/2024 AUDIT-C Answer Date Recorded Q1: How often do you have a drink containing alcohol? Never 06/07/2024 Q2: How many drinks containi ng alcohol do you have on a typical day when you are drinking? Patient does not drink Q3: How often do you have si x or more drinks on one occasion? Never 06/07/2024 Overall Financial Resource Strain (CARDIA) Answe r Date Recorded How hard is it for you to pa y for the very basics like food, housing, medical care, and heating? Not hard at all 03/09/2024 PHQ-2 Answer Date Recorded PHQ-2 Total Score (If total score is 3 or more points, staff should administer the PHQ-9) 0 07/13/2024 Hunger Vital Sign Answer Date Recorded Within the past 12 months, y ou worried that your food would run out before you got the money to buy more. Never true 03/09/20 24 Within the past 12 months, t he food you bought just didn't last and you didn't have money to get more. Never true 03/09/2024 PRAPARE - Transportation Answer Date Re corded In the past 12 months, has l ack of transportation kept you from medical appointments or from getting medications? No 08/2023 In the past 12 months, has l ack of transportation kept you from meetings, work, or from getting things needed for daily living? No 03/09/2024 Housing Stability Vital Sign Answer Douglas e Recorded In the last 12 months, was t here a time when you were not able to pay the mortgage or rent on time? No 08/16/2020 In the last 12 months, how many places have you lived? 1 08/16/2020 In the last 12 months, was t here a time when you did not have a steady place to sleep or slept in a chcf (including now)? No 08/16/2020 Housing Stability Vital Sign Answer Douglas e Recorded In the last 12 months, was t here a time when you were not able to pay the mortgage or rent on time? No 03/09/2024 In the past 12 months, how m any times have you moved where you were living? 0 03/09/2024 At any time in the past 12 m [facility], were you homeless or living in a chcf (including now)? No 03/09/2024 Personal Safety Answer Date Recorded Have you ever been in or are you currently in a harmful physical or emotional relationship or is someone making you feel afraid or unsafe? Denies 07/06/2024 Comments No Sex and Gender Information Value Date Recorded Sex Assigned at Not on file Legal Sex Female 11:59 PM MANAGER TRAINEE Gender Identity Not on file Sexual Orientation Not on file Obstetrics History Para Term AB IAB SAB Ectopic Multiple Livin g Live Births 3 3 3 3 3 Date Outcome GA Total Labor Labor/2nd/3rd Weight Sex Type Anes PTL Ronna A1 A5 Name Clin 0 Term 3.175 kg (7 lb) F Vag-S pont Living Complications:None 3 Term 2.722 kg (6 lb) M Vag-S pont Living Complications:None 1 Term 3.175 kg (7 lb) M Vag-S pont Living Complications:None Last Filed Vital Signs Vital Sign Reading Time Taken Comments Blood Pressure 130/80 07/13/2024 8:44 AM CDT Pulse 95 07/13/2024 8:33 AM CDT Temperature 36.6 C (97.9 F) 07/13/2024 8:33 AM CDT Respiratory Rate 17 07/13/2024 8:33 AM CDT Oxygen Saturation 98% 07/13/2024 8:33 AM CDT Inhaled Oxygen Concentration - - Weight 59.9 kg (132 lb) 07/13/2024 8:33 AM CDT Height 157.5 cm (5' 2.01) 07/13/2024 8:33 AM CD T Body Mass Index 24.14 07/13/2024 8:33 AM CDT Plan of Treatment Health Maintenance Due Date Last Done Comments Hepatitis B Screening 11/27/1958 Zoster Vaccine (2 of 3) 06/11/2014 04/16/2014, 04/16 DTaP/Tdap/Td Vaccine (1 - Tdap) 07/16/2019 0 Covid-19 Vaccine (5 - 2023-2 5 season) 2023 01/27/2023, 12/25/2021, 03/04/2021, Additional history exists Hemoglobin A1C 11/23/2024 05/26/2024, 01/04, 09/22/2023, Additional history exists Well Visit 65+ 01/12/2025 01/13/2024, 11/04, 11/10/2021, Additional history exists Foot Exam 01/23/2025 01/24/2024, 09/03, 06/21/2023, Additional history exists Albumin Creatinine Ratio, Urine 05/26/2025 05/26/2024, 06/21/2023, 01/01/2023, Additional history exists Lipid Panel 05/26/2025 05/26/2024, 07/0 06/2023, 06/21/2023, Additional history exists eGFR 07/06/2025 07/06/2024, 12/0 08/2023, 03/08/2024, Additional history exists Depression Screening 07/13/2025 07/13/2024, 01/13/2024, 10/11/2023, Additional history exists Fall Risk Assessment 07/13/2025 07/13/2024, 03/14/2024, 03/09/2024, Additional history exists Osteoporosis Screening-Bone Density Scan 02/16/2026 02/17/2024, 11/17/2021, 10/30/2019, Additional history exists Dilated Eye Exam 06/19/2026 06/19/2024, , 10/08/2021, Additional history exists Pneumococcal vaccine 65+ Completed 018, 07/08/2014, 07/08/2014, Additional history exists Influenza Vaccine Completed 01/05/2024, , 01/03/2022, Additional history exists Goals Goal Patient Goal Type Associated Problems Recent Progress Patient-Stated? Author GEENA General Goal - Patient is knowledgeable about condition when worsening and how to respond ACO Care Management On track(2021 4:19 PM CDT) Jessica Luque, RN Note: Problem: Knowledge deficit related to signs and symptoms of worsening condition Interventions: - Assess patient's level of understanding related to their condition(s), specific medications and self-management of their chronic conditions. - Send educational materials to patient related to their chronic condition, including signs and symptoms, self-management actions, and serious symptoms that require urgent medical intervention. - Assist patient/provider in developing an action plan for symptom management. - Review with patient weekly: s/s worsening condition, self-management actions to take, when to call CM or provider. Medical Devices Implanted Type Area Frame Feeder Device Identifier Shelf Expiration Date Model / Serial / Lot [employer] [id number] Coil Embolization [employer] L7cm Od3mm .018 In Catheter - [id number] Implanted:Qty: 1 on 03/02/2020 at [facility] [employer] 11/06/2024 [id number] / / [id number] [employer] [id number] Coil Embolization [employer] L3cm Od2mm .018 In Catheter - [id number] Implanted:Qty: 1 on 03/02/2020 at [facility] [employer] 11/07/2024 [id number] / / [id number] [employer] [id number] Coil Embolization [employer] L3cm Od2mm .018 In Catheter - [id number] Implanted:Qty: 1 on 03/02/2020 at [facility] [employer] 11/07/2024 [id number] / / [id number] Daig Addison [id number] Device Closure Angio-Seal Vip [employer]-Plus Polyglyd L70 Cm Od6 Fr Odsec.035 In Vascular - [id number] Implanted:Qty: 1 on 03/02/2020 at [facility] [employer] 12/03/2020 [id number] / / [id number] [employer] [id number] Coil Embolization [employer] L7cm Od3mm .018 In Catheter - [id number] Implanted:Qty: 1 on 03/02/2020 at [facility] [employer] 11/06/2024 [id number] / / [id number] [employer] [id number] Coil Embolization [employer] L14cm Od3mm .018 In Catheter - [id number] Implanted:Qty: 1 on 03/02/2020 at [facility] [employer] 01/12/2025 [id number] / / [id number] [employer] [id number] Coil Embolization [employer] [place] L14cm Od3mm .018 In Catheter - [id number] Implanted:Qty: 1 on 03/02/2020 at [facility] [employer] 11/08/2024 [id number] / / [id number] [employer] [id number] Coil Embolization [employer] [place] L7cm Od3mm .018 In Catheter - [id number] Implanted:Qty: 1 on 03/02/2020 at [facility] [employer] 11/06/2024 [id number] / / [id number] [employer] [id number] Coil Embolization [employer] L3cm Od2mm .018 In Catheter - [id number] Implanted:Qty: 1 on 03/02/2020 at [facility] [employer] 11/07/2024 [id number] / / [id number] [employer] [id number] Coil Embolization [employer] L3cm Od2mm .018 In Catheter - [id number] Implanted:Qty: 1 on 03/02/2020 at [facility] [employer] 11/07/2024 [id number] / / [id number] [employer] [id number] Coil Embolization [employer] L3cm Od2mm .018 In Catheter - [id number] Implanted:Qty: 1 on 03/02/2020 at [facility] [employer] 11/07/2024 [id number] / / [id number] [id number] Coil Embolization [employer] [place] L7cm Od3mm .018 In Catheter - [id number] Implanted:Qty: 1 on 03/02/2020 at [facility] [employer] 01/31/2025 [id number] / / [id number] Procedures Procedure Name Priority Date/Time Associated Diagnosis Comments SEPSIS LACTATE WITH REFLEX Timed 07/06/2024 1:46 PM CDT TROPONIN T HIGH-SENSITIVITY 2-HOUR Timed 07/06/2024 1:05 PM CDT URINALYSIS AND REFLEX TO MICROSCOPIC AND CULTURE STAT 07/06/2024 1:[address] ABDOMEN PELVIS W CONTRAST ED 07/06/2024 12:19 PM CDT EGFR STAT 07/06/2024 10:41 AM CDT DIFFERENTIAL AUTO STAT 07/06/2024 10:41 AM CDT PROTIME-INR STAT 07/06/2024 10:41 AM CDT SEPSIS LACTATE WITH REFLEX STAT 07/06/2024 10:41 AM CDT TROPONIN T HIGH-SENSITIVITY SERIES (BASELINE, 2HR, 4HR, 6HR) STAT 07/06/2024 10:41 AM CDT CBC WITH AUTO DIFFERENTIAL STAT 07/06/2024 10:41 AM CDT COMPREHENSIVE METABOLIC PANEL STAT 07/06/2024 10:41 AM CDT INFLUENZA A/B, RSV, AND COVID-19 PCR STAT 07/06/2024 10:41 AM CDT ECG 12-LEAD STAT 07/06/2024 9:49 AM CDT ELECTROCARDIOGRAM REPORT Routine 07/06/2024 9:26 AM CDT Tachycardia ECG 12-LEAD Routine 07/06/2024 8:56 AM CDT Tachycardia DIABETIC EYE EXAM Routine 06/19/2024 UT ARTHROCENTESIS ASPIR&/INJ MAJOR JT/BURSA W/O US Routine 06/07/2024 9:00 AM MANAGER TRAINEE Primary osteoarthritis of right knee LIPID PANEL Routine 05/26/2024 8:22 AM MANAGER TRAINEE Type 2 diabetes mellitus with diabetic polyneuropathy, with long-term current use of insulin (HCC) ALBUMIN CREATININE RATIO, URINE Routine 05/26/2024 8:22 AM MANAGER TRAINEE Type 2 diabetes mellitus with diabetic polyneuropathy, with long-term current use of insulin (HCC) POCT HEMOGLOBIN A1C Routine 05/26/2024 7:59 AM MANAGER TRAINEE Type 2 diabetes mellitus with diabetic polyneuropathy, with long-term current use of insulin (HCC) DEXA AXIAL SKELETON BONE DENSITY 1 OR MORE SITES Schedule Routine, Read Routine (OP Routine) 02/17/2024 8:21 AM MANAGER TRAINEE Encounter for osteoporosis screening in asymptomatic postmenopausal patient DIABETES FOOT EXAM Routine 11/19/2016 from Last 3 Months or Most Recently Relevant to Health Maintenance Results * Sepsis Lactate w/ Reflex (07/06/2024 1:46 PM CDT) Sepsis Lactate 1.1 0.7 - 2.0 mmol/L Blood 07/06/2024 1:46 PM CDT 07/06/2024 1:49 PM CDT Mariama Carrillo MD LAB BLOOD ORDERABLES Sahara l Result [facility] ([place]) 1 [facility] Department of Laboratories [place], [place] [id number] * (ABNORMAL) Troponin T high-sensitivity 2-hour (07/06/2024 1:05 PM CDT) Trop T hs 28(H) <=14 ng/L Comment: Interpretive Data For further hscTnT resources including the diagnostic algorithm and an aid in interpretation, copy and paste this link: https://nrl.testcatalog.org/show/hsTrop Current Interpretive Data last revised 2020. Trop T hs delta 1 ng/L [facility] ([place]) Trop T hs interp Insignificant [facility] ([place]) Blood 07/06/2024 1:05 PM CDT 07/06/2024 1:10 PM CDT us Mariama Carrillo MD LAB BLOOD ORDERABLES Sahara l Result [facility] ([place]) 1 [facility] [employer] [place] [address] * (ABNORMAL) Urinalysis reflex to microscopic and culture Urine (07/06/2024 1:05 PM CDT) Color, ur Straw Yellow Clarity, ur Clear Clear [facility] ([place]) Specific gravity, ur 1.008 1.003 - 1.030 [facility] ([place]) pH, urine 7.0 [facility] ([place]) Comment: Interpretive Data U rine pH is affected by diet, medications, systemic acid-base disturbances, and renal tubular function. pH may affect urinary stone formation. For example, urine pH below 6.0 may help reduce the tendency for calcium phosphate stones and pH greater than 6.0 may reduce the tendency for uric acid stone formation. Source: [facility] Current Interpretive Data was last revised on 2017 Protein, ur ql Negative Negative [facility] ([place]) Glucose, ur ql 2+(A) Negative [facility] ([place]) Ketones, ur Negative Negative [facility] ([place]) Bilirubin, ur Negative Negative [facility] ([place]) Blood, ur Negative Negative [facility] ([place]) Urobilinogen, ur <2.0 <2.0 mg/dL [facility] ([place]) Nitrite, ur Negative Negative [facility] ([place]) Leukocyte esterase, ur Negative Negative [facility] ([place]) UA reflex comment Reflex conditions for microscopic UA and culture not met. [facility] ([place]) Urine 07/06/2024 1:05 PM CDT 07/06/2024 1:10 PM CDT Mariama Carrillo MD LAB MICROBIOLOGY - GENERA L ORDERABLES Final Result [facility] ([place]) 1 [facility] Department [place] [address] * CT Abdomen Pelvis W Contrast (07/06/2024 12:19 PM CDT) Anatomical Region Laterality Modality Body N/A Computed Tomogra phy 07/06/2024 1:20 PM CDT Narrative 07/06/2024 1:39 PM CDT EXAM DESCRIPTION: CT ABDOMEN PELVIS W CONTRAST REASON FOR STUDY: Abdominal pain, acute, nonlocalized pain TECHNIQUE: CT scan of the abdomen and pelvis performed with intravenous and without oral contrast using helical scanning technique with dynamic intravenous contrast injection. Reconstructed coronal and sagittal MPR images reviewed. All images stored on PACS. Automated exposure control was used as a dose optimization technique for this examination. CONTRAST TYPE/DOSE: 75mL of IOVERSOL 350 MG IODINE/ML INTRAVENOUS SYRINGE injected via intravenous COMPARISON: Abdomen pelvis CT 05/10/2023. FINDINGS: LOWER CHEST: No significant pulmonary abnormalities. No effusion. LIVER: Normal size. No identified cystic or solid masses. GALLBLADDER: No stones or wall thickening. No pericholecystic fluid. BILE DUCTS: No intrahepatic or extrahepatic ductal dilatation. SPLEEN: Normal size. No focal lesions. PANCREAS: No identified cystic or solid masses. No significant calcifications. No adjacent inflammation or peripancreatic fluid collections. Pancreatic duct not dilated. ADRENALS: Normal. KIDNEYS/URINARY TRACT: 5 mm nonobstructing right renal calculus. No left renal calculus. No definable hydronephrosis or ureteral dilatation. No ureteral stones. No identified significant cystic or solid masses. No hydronephrosis or hydroureter. Symmetric enhancement. Urinary bladder is unremarkable. GI: No dilated bowel loops. No obvious wall thickening. Normal appendix. No significant diverticular disease. PERITONEUM: There are surgical embolization coils in the epigastric-mary hepatis region, stable. Please correlate with past procedure. Ab RETROPERITONEUM: No mass or adenopathy. REPRODUCTIVE: No significant abnormality. VASCULATURE: No abdominal aortic aneurysm. MUSCULOSKELETAL: Bilateral hip arthritis.. OTHER: No other abnormality. IMPRESSION: No acute intra-abdominal process. Nonobstructing right renal calculus. Stable post treatment changes related to embolization coils in the epigastric-mary hepatis region. Please correlate with past procedure. THIS IS AN ELECTRONICALLY VERIFIED FINAL REPORT 07/06/2024 1:39 PM - Electronically signed by Bree Olmos M.D. LC: JON Report ID: [id number] Reading Location: [id number] Procedure Note Dolores Olmos MD - 07/06/2024 EXAM DESCRIPTION: CT ABDOMEN PELVIS W CONTRAST REASON FOR STUDY: Abdominal pain, acute, nonlocalized pain TECHNIQUE: CT scan of the abdomen and pelvis performed with intravenousand without oral contrast using helical scanning technique with dynamic intravenous contrast injection. Reconstructed coronal and sagittal MPRimages reviewed. All images stored on PACS. Automated exposure control was usedas a dose optimization technique for this examination. CONTRAST TYPE/DOSE: 75mL of IOVERSOL 350 MG IODINE/ML INTRAVENOUSSYRINGE injected via intravenous COMPARISON: Abdomen pelvis CT 05/10/2023. FINDINGS: LOWER CHEST: No significant pulmonary abnormalities. No effusion. LIVER: Normal size. No identified cystic or solid masses. GALLBLADDER: No stones or wall thickening. No pericholecystic fluid. BILE DUCTS: No intrahepatic or extrahepatic ductal dilatation. SPLEEN: Normal size. No focal lesions. PANCREAS: No identified cystic or solid masses. No significant calcifications. No adjacent inflammation or peripancreatic fluidcollections. Pancreatic duct not dilated. ADRENALS: Normal. KIDNEYS/URINARY TRACT: 5 mm nonobstructing right renal calculus. Noleft renal calculus. No definable hydronephrosis or ureteral dilatation. No ureteral stones. No identified significant cystic or solid masses. No hydronephrosis or hydroureter. Symmetric enhancement. Urinary bladderis unremarkable. GI: No dilated bowel loops. No obvious wall thickening. Normalappendix. No significant diverticular disease. PERITONEUM: There are surgical embolization coils in theepigastric-mary hepatis region, stable. Please correlate with past procedure. Ab RETROPERITONEUM: No mass or adenopathy. REPRODUCTIVE: No significant abnormality. VASCULATURE: No abdominal aortic aneurysm. MUSCULOSKELETAL: Bilateral hip arthritis.. OTHER: No other abnormality. IMPRESSION: No acute intra-abdominal process. Nonobstructing right renal calculus. Stable post treatment changes related to embolization coils in the epigastric-mary hepatis region. Please correlate with past procedure. THIS IS AN ELECTRONICALLY VERIFIED FINAL REPORT 07/06/2024 1:39 PM - Electronically signed by Bree Olmos M.D. LC: JON Report ID: [id number] Reading Location: [id number] Mariama Carrillo MD IMG CT PROCEDURES Final R esult * (ABNORMAL) Troponin T high-sensitivity series (baseline, 2hr, 4hr, 6hr) (07/06/2024 10:41 AM CDT) Trop T hs 27(H) <=14 ng/L Comment: Interpretive Data For further hscTnT resources including the diagnostic algorithm and an aid in interpretation, copy and paste this link: https://nrl.testcatalog.org/show/hsTrop Current Interpretive Data last revised 2020. Blood 07/06/2024 10:4 1 AM CDT 07/06/2024 10:43 AM CDT Mariama Carrillo MD LAB BLOOD ORDERABLES Sahara l Result [facility]) 1 [facility] Department of Laboratories [place] [id number] * Influenza A/B, RSV, and COVID-19 PCR Nasopharyngeal (07/06/2024 10:41 AM CDT) [facility] COVID-19 RNA Negative Negative Influenza A RNA Negative Negative [facility] ([place]) Influenza B RNA Negative Negative [facility] ([place]) RSV RNA Negative Negative [facility] ([place]) Comment: Interpretive data: Testing performed by [facility]. This test is performed using the [employer] Xpert Xpress CoV-2/Flu/RSV plus assay. This is a multiplex, real- time reverse transcriptase PCR assay intended for the qualitative detection of nucleic acid from SARS-CoV-2, influenza A, influenza B, and respiratory syncytial virus. This assay has been cleared by the [place] Food and Drug administration. The performance characteristics have been verified by the [facility]. Results must be considered in the clinical context, and a negative result does not rule out infection. Interpretive Data last revised 2023 Nasopharyngeal 07/06/2024 10 :41 AM CDT 07/06/2024 10:43 AM CDT Narrative [facility] ([place]) - 07/06/2024 11:26 AM CDT Is the Patient experiencing symptoms consistent with COVID?->Yes Mariama Carrillo MD LAB MICROBIOLOGY - GENERA L ORDERABLES Final Result [facility] ([place]) 1 [facility] [employer] [place] [address] * (ABNORMAL) Sepsis Lactate w/ Reflex (07/06/2024 10:41 AM CDT) Sepsis Lactate 2.9(H) 0.7 - 2.0 mmol/L Blood 07/06/2024 10:4 1 AM CDT 07/06/2024 10:43 AM CDT Mariama Carrillo MD LAB BLOOD ORDERABLES Sahara l Result [facility] ([place]) 1 [facility] [employer] [place] [address] * eGFR (07/06/2024 10:41 AM CDT) eGFR 76 >=60 mL/min/1. 73 m2 Comment: Interpretive Data Reference Interval Normal >/= 90 mL/min/1.73m2 Mildly decreased* 60 - 89 mL/min/1.73m2 Mildly to moderately decreased 45 - 59 mL/min/1.73m2 Moderately to severely decreased 30 - 44 mL/min/1.73m2 Severely decreased 15 - 29 mL/min/1.73m2 Kidney Failure < 15 mL/min/1.73m2 *Relative to young adult level Estimated glomerular filtration rate is determined by the 2020 CKD-EPI equation recommended by the National Kidney Foundation (A Unifying Approach to GFR Estimation: Recommendations of the NKF-ASK Task Force on Reassessing the Inclusion of Race in Diagnosing Kidney Disease, JASN 2020). The CKD-EPI equation should not be used for patients with unstable renal function and has not been validated in children and those over 70. Current interpretive data was last reviewed 2021. Blood 07/06/2024 10:4 1 AM CDT 07/06/2024 10:43 AM CDT us Mariama Carrillo MD LAB BLOOD ORDERABLES Sahara lenz Result [facility] 1 [facility] Department [place] [address] * Differential, auto (07/06/2024 10:41 AM CDT) Neutrophil abs 3.07 1.50 - 6.50 K/cumm Imm gran abs 0.02 0.00 - 0.10 K/cumm [facility] ([place]) Lymphocyte abs 1.22 0.80 - 3.30 K/cumm [facility] ([place]) Monocyte abs 0.73 0.20 - 0.80 K/cumm [facility] ([place]) Eosinophil abs 0.02 0.00 - 0.50 K/cumm [facility] ([place]) Basophil abs 0.03 0.00 - 0.10 K/cumm [facility] ([place]) Neutrophil pct 60.3 % [facility] ([place]) Comment: Interpretive Data Percent cell count reference ranges are not reported, since discordance with absolute values may lead to misinterpretation of CBC data. Current Interpretive Data was last revised on 2017. Imm gran pct 0.4 % [facility] ([place]) Comment: Interpretive Data Percent cell count reference ranges are not reported, since discordance with absolute values may lead to misinterpretation of CBC data. Current Interpretive Data was last revised on 2017. Lymphocyte pct 24.0 % [facility] ([place]) Comment: Interpretive Data Percent cell count reference ranges are not reported, since discordance with absolute values may lead to misinterpretation of CBC data. Current Interpretive Data was last revised on 2017. Monocyte pct 14.3 % [facility] ([place]) Comment: Interpretive Data Percent cell count reference ranges are not reported, since discordance with absolute values may lead to misinterpretation of CBC data. Current Interpretive Data was last revised on 2017. Eosinophil pct 0.4 % [facility] ([place]) Comment: Interpretive Data Percent cell count reference ranges are not reported, since discordance with absolute values may lead to misinterpretation of CBC data. Current Interpretive Data was last revised on 2017. Basophil pct 0.6 % [facility] ([place]) Comment: Interpretive Data Percent cell count reference ranges are not reported, since discordance with absolute values may lead to misinterpretation of CBC data. Current Interpretive Data was last revised on 2017. Blood 07/06/2024 10:4 1 AM CDT 07/06/2024 10:43 AM CDT Mariama Carrillo MD LAB BLOOD ORDERABLES Sahara lenz Result [facility] ([place]) 1 [facility] Department [place] [address] * CBC with auto differential (07/06/2024 10:41 AM CDT) WBC 5.09 3.80 - 9.90 K/cumm Hgb 15.0 11.9 - 15.5 g/dL [facility] ([place]) Hct 42.9 35.6 - 45.5 % [facility] ([place]) Plt 255 150 - 400 K/cumm [facility] ([place]) MPV 10.2 9.1 - 12.3 fL [facility] ([place]) RBC 4.70 3.90 - 5.20 M/cumm [facility] ([place]) MCV 91.3 81.3 - 96.4 fL [facility] ([place]) MCH 31.9 27.1 - 33.3 pg [facility] ([place]) MCHC 35.0 32.3 - 35.7 g/dL [facility] ([place]) RDW CV 12.4 11.1 - 14.9 % [facility] ([place]) RDW SD 41.4 35.7 - 48.1 fL [facility] ([place]) NRBC abs 0.00 0.00 - 0.01 K/cumm [facility] ([place]) Blood 07/06/2024 10:4 1 AM CDT 07/06/2024 10:43 AM CDT Mariama Carrillo MD LAB BLOOD ORDERABLES Sahara l Result Performing Organization Address [facility] Co de Phone Number [facility] ([place]) 1 [facility] [place] [address] * Protime-INR (07/06/2024 10:41 AM CDT) Pathologist [facility] PT 10.3 9.7 - 13.0 sec [facility] ([place]) INR 0.95 0.90 - 1.20 [facility] ([place]) Comment: Interpretive data Oral anticoagulant therapeutic ranges: Venous thromboembolism prophylaxis or treatment: 2.0-3.0 CARDIOLOGY Standard range: 2.0-3.0 High-intensity range: 2.5-3.5 Refer to indication-specific guidelines for appropriate target ranges for prosthetic heart valve replacement. Current interpretive data was last revised on 2019. Blood 07/06/2024 10:4 1 AM CDT 07/06/2024 10:43 AM CDT Mariama Carrillo MD LAB BLOOD ORDERABLES Sahara l Result Performing Organization Address [facility] Co de Phone Number [facility] ([place]) 1 [facility] [place] [address] * (ABNORMAL) Comprehensive metabolic panel (07/06/2024 10:41 AM CDT) Sodium 139 135 - 145 mmol/L Potassium, pl 3.8 3.3 - 4.9 mmol/L [facility] ([place]) Chloride 101 97 - 110 mmol/L [facility] ([place]) CO2 23 22 - 32 mmol/L [facility] ([place]) Anion gap 15 2 - 15 mmol/L [facility] ([place]) BUN 11 6 - 25 mg/dL [facility] ([place]) Creatinine 0.78 0.60 - 1.10 mg/dL [facility] ([place]) Comment:Icteric sample, test results may be affected. Glucose 266(H) 70 - 199 mg/dL [facility] ([place]) Comment: Interpretive Data Fasting glucose >/= 126 mg/dl is diagnostic for diabetes. Fasting is defined as no caloric intake for at least 8 hours. Fasting glucose between 100 mg/dl to 125 mg/dl is diagnostic of prediabetes. In a patient with classic symptoms of hyperglycemia or hyperglycemic crisis, a random glucose >/= 200 mg/dl is diagnostic for diabetes. In the absence of unequivocal hyperglycemia, results should be confirmed by repeat testing. The classification and Diagnosis of Diabetes Diabetes Care 2021; 46: S19-S40. Current interpretive data was last revised 2022. Calcium 9.1 8.5 - 10.3 mg/dL [facility] ([place]) Bilirubin, total 1.2 0.1 - 1.2 mg/dL [facility] ([place]) Protein, pl 6.4(L) 6.5 - 8.5 g/dL [facility] ([place]) Albumin 4.0 3.5 - 5.0 g/dL [facility] ([place]) Alk phos 86 40 - 130 Units/L [facility] ([place]) ALT 24 7 - 45 Units/L [facility] ([place]) AST 28 10 - 45 Units/L [facility] ([place]) Comment:Slightly Hemolyzed S pecimen Blood 07/06/2024 10:4 1 AM CDT 07/06/2024 10:43 AM CDT us Mariama Carrillo MD LAB BLOOD ORDERABLES Sahara lenz Result [facility] ([place]) 1 [facility] Department [place] [address] * ECG 12 lead (07/06/2024 9:49 AM CDT) 07/06/2024 9:49 AM CDT Narrative [facility] - 07/07/2024 7:59 AM CDT Vent Rate: 107 bpm RR Interval: 557 msec UT Interval: 119 msec QRS Duration: 90 msec QT Interval: 320 msec QTC Interval: 383 msec P-R-T [place]: 76 - -9 - 29 degrees IMPRESSION: SINUS TACHYCARDIA WITH SHORT UT INTERVAL RIGHT ATRIAL ENLARGEMENT [0.3mV P WAVE] SEPTAL MYOCARDIAL INFARCTION , OF INDETERMINATE AGE [40+ ms Q WAVE IN V1/V2] ABNORMAL ECG Compared to prior EKG, heart rate has increased Lateral ST segment depressions are new Electronically Signed By: Jerad Blackwell MD Barrett Narayanan MD ECG ORDERABLES Fin al Result [facility] * EKG 12 lead office performed (07/06/2024 9:26 AM CDT) Narrative Abdullahi Garcia MD - 07/06/2024 9:26 AM CDT Abdullahi Garcia MD 08/01/2024 7:50 AM EKG 12 lead office performed Date/Time: 07/06/2024 9:26 AM Performed by: Yandy Belle NP Authorized by: Yandy Belle NP Compared with previous ECG: Yes Rhythm: sinus tachycardia Rate: tachycardic QRS axis: Left Conduction: LAFB ST Elevation: V1 and V2 (similar in previous ecg) T Wave: Normal Clinical impression: abnormal ECG Comments: Rate: 109 Rhythm: sinus tach with short pr syndrome QRS: 98 QT/QTcBaz: 334/419ms UT: 118ms P/QRS/T: 64/-36/24degrees us Yandy Belle NP ECG ORDERABLES Final Result * ECG 12 lead (07/06/2024 8:56 AM CDT) Yandy Belle NP ECG ORDERABLES Final Result * (ABNORMAL) Diabetic Eye Exam (06/19/2024) 06/19/2024 Historical Provider MD HEALTH MAINTENANCE Final Result * [place] ARTHROCENTESIS ASPIR&/INJ MAJOR JT/BURSA W/O US (06/07/2024 9:00 AM MANAGER TRAINEE) Narrative Magan Kim NP - 06/07/2024 9:00 AM MANAGER TRAINEE Magan Kim NP 06/07/2024 9:01 AM Large Joint (Hip, Knee, Shoulder) Injection: R knee Performed by: Magan Kim NP Authorized by: Magan Kim NP Large Joint Injection/Aspiration: Consent Given by: Patient Site marked: the procedure site was marked Timeout: prior to procedure the correct patient, procedure, and site was verified Verbal consent obtained: Yes Supporting Documentation: Indications: Pain Procedure Details: Location: Knee Site: R knee Prep: patient was prepped and draped in usual sterile fashion Needle Size: 22 G Approach: Anterolateral Ultrasound guided: No Fluroscopic guidance: No Medications: 32 mg triamcinolone acetonide extended release 32 mg; 2 mL lidocaine 20 mg/mL (2 %) Patient tolerance: Patient tolerated the procedure well with no immediate complications Result [facility] Magan Kim NP IN CLINIC/BEDSIDE ORDERA BLES Final Result * Albumin Creatinine Ratio, Urine (05/26/2024 8:22 AM MANAGER TRAINEE) Albumin Ur <12.0 mg/L Comment: Interpretive Data No reference range established. Current interpretive data was last revised 2018. Creatinine Ur 12.3 mg/dL [facility] Comment: Interpretive Data No reference range established. Current interpretive data was last revised 2018. Albumin Creatinine Ratio, Ur See Comment 1 - 29 [facility] Comment:Unable to calculate Urine 05/26/2024 8:22 AM MANAGER TRAINEE 05/26/2024 2:14 PM MANAGER TRAINEE Joann Hopkins NP LAB URINE ORDERABLES Final Resu lt [facility] [id number] [address] [place] [address] * (ABNORMAL) Lipid panel (05/26/2024 8:22 AM MANAGER TRAINEE) Cholesterol 157 30 - 199 mg/dL Comment: Interpretive Data Ages < or = 19 years Acceptable: <170 mg/dL Borderline high: 170-199 mg/dL High: >or= 200 mg/dL Ages > or = 20 years Desirable: <200 mg/dL Borderline high: 200-239 mg/dL High: >or= 240 mg/dL Literature References: 1. Expert Panel on Integrated Guidelines for Cardiovascular Health and Risk Reduction in Children and Adolescents. Pediatrics 2011;128:S213 2. NCEP Expert Panel. Circulation 2004;110:227 Current Interpretive Data was last revised on 2017. Triglycerides 247(H) <=149 mg/dL [facility] Comment: Interpretive Data Ages < or = 9 years Acceptable: <75 mg/dL Borderline high: 75-99 mg/dL High: >or= 100 mg/dL Ages 10 to 20 years Acceptable: <90 mg/dL Borderline high: 90-129 mg/dL High: >or= 130 mg/dL Ages > or = 20 years Desirable: <150 mg/dL Borderline high: 150-199 mg/dL High: 200-499 mg/dL Very high: >or= 499 mg/dL Literature References: 1. Expert Panel on Integrated Guidelines for Cardiovascular Health and Risk Reduction in Children and Adolescents. Pediatrics 2011;128:S213 2. NCEP Expert Panel. Circulation 2004;110:227 Current Interpretive Data was last revised on 2017. HDL 81 >=40 mg/dL [facility] Comment: Interpretive Data Ages < or = 19 years Acceptable: >45 mg/dL Borderline low: 40-45 mg/dL Low: <40 mg/dL Ages > or = 20 years Desirable: >or= 60 mg/dL Low: <40 mg/dL Literature References: 1. Expert Panel on Integrated Guidelines for Cardiovascular Health and Risk Reduction in Children and Adolescents. Pediatrics 2011;128:S213 2. NCEP Expert Panel. Circulation 2004;110:227 Current Interpretive Data was last revised on 2017. LDL, calculated 39 <=129 mg/dL [facility] Comment: Interpretive Data Ages < or = 19 years Acceptable: <110 mg/dL Borderline high: 110-129 mg/dL High: >or= 130 mg/dL Ages > or = 20 years Optimal: <100 mg/dL Near optimal: 100-129 mg/dL Borderline high: 130-159 mg/dL High: >160 mg/dL Calculated using the Gigi LDL-C estimating equation. This equation was implemented on 2023. Prior to this date LDL-C was estimated using the Friedewald equation. Literature References: 1. Expert Panel on Integrated Guidelines for Cardiovascular Health and Risk Reduction in Children and Adolescents. Pediatrics 2011;128:S213 2. NCEP Expert Panel. Circulation 2004;110:227 3. Gigi Jacinto et al. LEAH Cardiol. 2020 August 03;5(5):540-548. doi: 10.1001/[email or web address] Current Interpretive Data was last revised on 2023. Non-HDL Cholesterol 76 mg/dL RAUL GASCA Comment: Interpretive Data Ages < or = 19 years Acceptable: <120 mg/dL Borderline high: 120-144 mg/dL High: >145 mg/dL Ages > or = 20 years When triglycerides are >200 mg/dL, Non-HDL cholesterol is a secondary target of therapy with treatment goals that are 30 mg/dL greater than the LDL cholesterol target. Literature References: 1. Expert Panel on Integrated Guidelines for Cardiovascular Health and Risk Reduction in Children and Adolescents. Pediatrics 2011;128:S213 2. NCEP Expert Panel. Circulation 2004;110:227 Current Interpretive Data was last revised on 2017. Chol/HDL ratio 2 RAUL GASCA Blood 05/26/2024 8:22 AM MANAGER TRAINEE 05/26/2024 2:14 PM MANAGER TRAINEE Narrative RAUL GASCA - 05/26/2024 3:17 PM MANAGER TRAINEE These lab test should be done fasting. This means do not eat or drink for at least 12 hours prior to getting your blood drawn. us Joann Hopkins NP LAB BLOOD ORDERABLES Final Resu lt RAUL GASCA [id number] Department [place] [address] * POCT hemoglobin A1c (05/26/2024 7:59 AM MANAGER TRAINEE) Hemoglobin A1C, POC 7.3 4.0 - 5.6 % Blood 05/26/2024 7:59 AM MANAGER TRAINEE us Joann Hopkins NP POINT OF CARE TEST ORDERABLES F inal Result * Dexa Axial Skeleton Bone Density 1 or 2 Site (02/17/2024 8:21 AM MANAGER TRAINEE) Anatomical Region Laterality Modality Body N/A Other 02/17/2024 4:41 PM MANAGER TRAINEE Narrative 02/17/2024 4:42 PM MANAGER TRAINEE EXAM DESCRIPTION: DEXA AXIAL SKELETON BONE DENSITY 1 OR MORE SITES REASON FOR STUDY: 83 y/o year old F with given history of: post-menopausal osteoporosis prevention screening 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 LEFT HIP: Total BMD is 0.862 g/cm2 T-score is -0.7 This is decreased in comparison to prior exam which is statistically significant. Femoral neck BMD is 0.734 g/cm2 T-score is -1.0 FRAX: FRAX not reported due to T-scores of hip, femoral neck and/or spine being at or above -1.0 (Normal). IMPRESSION: Normal bone mass. REFERENCE: Bone mineral density: T-Score: Normal (T-score above or = -1.0) Low bone mass (T-score between -1.0 and -2.5) replaces the previously used term osteopenia Osteoporosis (T-score = or below -2.5) Z-Score: Within the expected range for age (Z-score above -2.0) Below the expected range for age (Z-score is -2.0 or below) Please see below follow up recommendations. Medical evaluation for secondary causes of low bone mineral density may be appropriate. FRAX is a World Health Organization validated fracture risk assessment tool that calculates a person's 10 year probability of a major osteoporosis related fracture and hip fracture. According to the National Osteoporosis Foundation guidelines, postmenopausal women and men age 50 or older with low bone mass and a 10 year probability of a major osteoporosis related fracture = or greater than 20% or a 10 year probability of a hip fracture = or greater than 3% should be considered for pharmacological treatment for the prevention of osteoporosis. For further information, including treatment recommendations, please refer to the 2019 ISCD Official Positions (http://www.iscd.org) and the NOF's Clinician's Guide to Prevention and Treatment of Osteoporosis (http://www.nof.org/professionals/clinical-guidelines) THIS IS AN ELECTRONICALLY VERIFIED FINAL REPORT 02/17/2024 4:42 PM - Electronically signed by Dimitri Reddy M.D. MF: FRIDA Report ID: [id number] Reading Location: [place] [address] Procedure Note Dimitri Reddy MD - 02/17/2024 EXAM DESCRIPTION: DEXA AXIAL SKELETON BONE DENSITY 1 OR MORE SITES REASON FOR STUDY: 83 y/o year old F with given history of: post-menopausal osteoporosis prevention screening Frame Feeder/Model: [employer] Discovery SL (S/N [id number]) CLINICAL INFORMATION: Current height: 61 inches Maximum height: 61 inches Weight: 127 pounds Risk factors: Postmenopausal, cancer COMPARISON: 11/17/2021 FINDINGS: AP LUMBAR SPINE L1-L4: Total BMD is 1.047 g/cm2 T-score is 0.0 This is increased in comparison to prior exam which is not statistically significant. LEFT HIP: Total BMD is 0.862 g/cm2 T-score is -0.7 This is decreased in comparison to prior exam which is statistically significant. Femoral neck BMD is 0.734 g/cm2 T-score is -1.0 FRAX: FRAX not reported due to T-scores of hip, femoral neck and/or spine beingat or above -1.0 (Normal). IMPRESSION: Normal bone mass. REFERENCE: Bone mineral density: T-Score: Normal (T-score above or = -1.0) Low bone mass (T-score between -1.0 and -2.5) replaces thepreviously used term osteopenia Osteoporosis (T-score = or below -2.5) Z-Score: Within the expected range for age (Z-score above -2.0) Below the expected range for age (Z-score is -2.0 or below) Please see below follow up recommendations. Medical evaluation forsecondary causes of low bone mineral density may be appropriate. FRAX is a World Health Organization validated fracture risk assessmenttool that calculates a person's 10 year probability of a major osteoporosisrelated fracture and hip fracture. According to the National OsteoporosisFoundation guidelines, postmenopausal women and men age 50 or older with low bonemass and a 10 year probability of a major osteoporosis related fracture = or greater than 20% or a 10 year probability of a hip fracture = or greaterthan 3% should be considered for pharmacological treatment for the preventionof osteoporosis. For further information, including treatment recommendations, please referto the 2019 ISCD Official Positions (http://www.iscd.org) and the NOF's Clinician's Guide to Prevention and Treatment of Osteoporosis (http://www.nof.org/professionals/clinical-guidelines) THIS IS AN ELECTRONICALLY VERIFIED FINAL REPORT 02/17/2024 4:42 PM - Electronically signed by Dimitri Reddy M.D. MF: FRIDA Report ID: [id number] Reading Location: [place] [address] Marii Villatoro NP IMG DXA PROCEDURES Final Re sult * DIABETES FOOT EXAM (11/19/2016) Diabetic Foot Exam Normal SCRIBED DM FOOT SITES SENSED 6 Comment:6:6 sensed Historical Provider HEALTH MAINTENANCE Final Result from Last 3 Months or Most Recently Relevant to Health Maintenance Insurance MEDICARE FOR LIFE MEDICARE FOR LIFE MEDICARE MEDICARE FOR LIFE Advance Directives For more information, please contact: [phone] * Full Code (Latest Code Status on File) Date Activated Date Inactivated Comments 03/08/2024 3:19 PM 03/09/2024 3:19 PM * Full Code Date Activated Date Inactivated Comments 01/12/2022 11:46 AM 01/13/2022 9:57 PM * Full Code Date Activated Date Inactivated Comments 06/06/2020 9:55 AM 06/06/2020 4:35 PM * Full Code Date Activated Date Inactivated Comments 06/06/2020 9:55 AM 06/06/2020 9:55 AM * Full Code Date Activated Date Inactivated Comments 02/29/2020 9:01 AM 03/14/2020 8:36 PM Care Teams Supervisor Winding Department Relationship Specialty Start Date End Date Abdullahi Garcia MD [address] [place] [address] PCP - General 07/03/16 Praveen Livingston MD [address] [place] [address] Consulting Physician Gastroenterology 01/24/24
--- OUTSIDE RECORDS SUMMARY | 2024-08-28 13:39 | XMS_ITS | Continuity of Care Document ---
Author Name [facility] Organization [facility] Care Team Providers Care Dining Services Manager Name Role Phone [facility] Unavailable Unavailable Medications Combined list of outpatient medications from Department of Defense and Veterans Affairs facilities.Medications provided include 1) outpatient medications from the last 15 months, and 2) patient-reported medications. Medication Details Route Status Patient Instructions Prescription Expires Prescription Number Last Dispense Date Ordering Provider Order Date Order Qty Source ASPIRIN EC (U/D) 81 MG ORAL TBEC Take with food/mil k.Swallo w whole. 07/06/2024 [id number] 4 2023 90 [employer] Ryan SALDANA ([facility] [place]) aspirin EC 81 mg tablet See Instruct ions, # 90 EA, 1 total refill(s ), Hard Stop Ordered 03/27/2025 5 2024 90.0 Ambulat ory Pharmac y aspirin EC 81 mg tablet 81 mg, Oral, Daily, # 90 EA, 0 total refill(s ), Hard Stop Oral (given by mouth) Discont inued 03/31/2024 4 2023 90.0 Ambulat ory Pharmac y atorvastati n 40 mg tablet 40 mg, Oral, Daily, # 90 EA, 1 total refill(s ), Hard Stop Oral (given by mouth) Discont inued 05/26/2024 2024 90.0 Ambulat ory Pharmac y atorvastati n 40 mg tablet 40 mg, See Instruct ions, # 90 EA, 1 total refill(s ), Hard Stop Discont inued 10/20/2023 4 2023 90.0 Ambulat ory Pharmac y atorvastati n 40 mg tablet = 1 tab(s), Oral, Daily, # 90 EA, 1 total refill(s ), Hard Stop Oral (given by mouth) Ordered 05/24/2025 5 2024 90.0 Ambulat ory Pharmac y atorvastati n 40 mg tablet See Instruct ions, # 90 EA, 1 total refill(s ), Acute Complet ed 06/28/2023 3 2023 90.0 Ambulat ory Pharmac y COZAAR (BRAND) 50 MG ORAL TAB Be careful if taking OTCs.Riley e or use exactly as directed .Do not take if . Active 09/09/2024 [id number] 4 2023 90 [employer] Ryan SALDANA ([facility] [place]) cycloSPORIN E 0.05% eye drops [5.5mL] = 1 drop(s), Eye-Both , BID, # 5.5 mL, 10 total refill(s ), Soft Stop Both eyes Ordered 5 2024 5.5 Ambulat ory Pharmac y D[address]etine [address] 30 mg capsule See dose instruct ions in comments , # 90 EA, 2 total refill(s ), Acute Complet ed 04/08/2023 3 2023 90.0 Ambulat ory Pharmac y DULoxetine DR 30 mg capsule 30 mg, Oral, BID, # 180 EA, 3 total refill(s ), Hard Stop Oral (given by mouth) Discont inued 05/26/2024 4 2024 180.0 Ambulat ory Pharmac y DUL[address]etine DR 30 mg capsule = 1 cap(s), Oral, BID, # 180 EA, 3 total refill(s ), Hard Stop Oral (given by mouth) Ordered 05/24/2025 5 2024 180.0 Ambulat ory Pharmac y fluticasone 50 mcg/inh nasal spray ADMINIST ER 2 SPRAYS INTO EACH NOSTRIL DAILY, # 48 g, 3 total refill(s ), Acute Complet ed 11/27/2022 2 2022 48.0 Ambulat ory Pharmac y furosemide 20 mg tablet 20 mg, Oral, Daily, # 90 EA, 3 total refill(s ), Hard Stop Oral (given by mouth) Complet ed 08/12/2024 5 2024 90.0 Ambulat ory Pharmac y furosemide 20 mg tablet See Instruct ions, # 90 EA, 2 total refill(s ), Acute Complet ed 04/08/2023 3 2023 90.0 Ambulat ory Pharmac y GABAPENTIN (U/D) 300 MG ORAL CAP May cause drowsine ss.Take or use exactly as directed . 05/27/2024 [id number] 4 [address] [place] [address]) gabapentin 300 mg capsule 300 mg, Oral, TID, # 270 EA, 3 total refill(s ), Hard Stop Oral (given by mouth) Complet ed 05/27/2024 4 2024 270.0 Ambulat ory Pharmac y gabapentin 300 mg capsule See Instruct ions, # 270 EA, 2 total refill(s ), Acute Complet ed 03/09/2023 3 2022 270.0 Ambulat ory Pharmac y gabapentin 300 mg capsule = 1 cap(s), Oral, TID, # 270 EA, 3 total refill(s ), Soft Stop Oral (given by mouth) Ordered 5 2024 270.0 Ambulat ory Pharmac y GLIMEPIRIDE 4 MG ORAL TAB Do not drink alcohol. Avoid exposure to sun.Take or use exactly as directed . 06/20/2024 [id number] 4 [address] [place] [address] ([facility]) glimepiride 4 mg tablet = 1 tab(s), Oral, Daily, # 90 EA, 3 total refill(s ), Hard Stop Oral (given by mouth) Ordered 03/31/2025 5 2024 90.0 Ambulat ory Pharmac y glimepiride 4 mg tablet 4 mg, Oral, Daily, # 90 EA, 3 total refill(s ), Hard Stop, KWAN Oral (given by mouth) Discont inued 03/31/2024 4 2023 90.0 Ambulat ory Pharmac y Glyburide (DiaBeta) Tablet 5 mg Oral Do not drink alcohol. Avoid exposure to sun.Take or use exactly as directed . 05/27/2024 [id number] 4 [address] [place] [address] Ryan SALDANA ([facility] [place]) glyBURIDE 5 mg tablet 5 mg, Oral, BID, # 180 EA, 1 total refill(s ), Hard Stop Oral (given by mouth) Discont inued 03/31/2024 4 2023 180.0 Ambulat ory Pharmac y glyBURIDE 5 mg tablet See dose instruct ions in comments , # 180 EA, 1 total refill(s ), Acute Complet ed 03/08/2023 3 2022 180.0 Ambulat ory Pharmac y glyBURIDE 5 mg tablet See Instruct ions, # 180 EA, 1 total refill(s ), Hard Stop Discont inued 12/24/2022 3 2022 180.0 Ambulat ory Pharmac y glyBURIDE 5 mg tablet 5 mg, Oral, BID, # 180 EA, 1 total refill(s ), Hard Stop Oral (given by mouth) Discont inued 06/03/2023 3 2023 180.0 Ambulat ory Pharmac y insulin glargine 100 units/mL subcutaneou s solution INJECT 14 UNITS SUB-CUTA NEOUSLY EVERY MORNING DIRECTED , # 15 mL, 1 total refill(s ), Acute Complet ed 11/27/2022 2 2022 15.0 Ambulat ory Pharmac y Insulin Glargine 100U/mL, Injection, Pen Injector Do not drink alcohol. Take or use exactly as directed .refrige rate 05/27/2024 [id number] 4 [address] [place] [address] Ryan SALDANA ([facility] [place]) Januvia 100 mg tablet 100 mg, Oral, Daily, # 90 EA, 3 total refill(s ), Hard Stop Oral (given by mouth) Discont inued 10/20/2023 4 2023 90.0 Ambulat ory Pharmac y Januvia 100 mg tablet 100 mg, Oral, Daily, # 90 EA, 3 total refill(s ), Hard Stop Oral (given by mouth) Discont inued 11/23/2023 4 2023 90.0 Ambulat ory Pharmac y Januvia 100 mg tablet See Instruct ions, # 90 EA, 3 total refill(s ), Hard Stop Discont inued 12/24/2022 3 2022 90.0 Ambulat ory Pharmac y Lantus SoloStar glargine 100 units/mL [3mL] See Instruct ions, # 15 mL, 3 total refill(s ), Hard Stop Complet ed 05/27/2024 5 2024 15.0 Ambulat ory Pharmac y Lantus SoloStar glargine 100 units/mL [3mL] See dose instruct ions in comments , # 15 mL, 2 total refill(s ), Acute Complet ed 03/08/2023 3 2022 15.0 Ambulat ory Pharmac y losartan 50 mg tablet 50 mg, Oral, Daily, # 90 EA, 3 total refill(s ), Hard Stop Oral (given by mouth) Ordered 09/09/2024 5 2024 90.0 Ambulat ory Pharmac y metoprolol succ (U/D) 25 MG ORAL TB24 Be careful if taking OTCs.Riley e with food/mil k.Take or use exactly as directed .May impair driving. Swallow whole.Ma y cause drowsine ss/dizzi ness. 08/12/2024 [id number] 4 [address] [place] [address] Ryan SALDANA ([facility] [place]) metoprolol succ (U/D) 25 MG ORAL TB24 Be careful if taking OTCs.Riley e with food/mil k.Take or use exactly as directed .May impair driving. Swallow whole.Ma y cause drowsine ss/dizzi ness. 01/04/2024 [id number] 3 [address] [place] [address] Ryan SALDANA ([facility] [place]) metoprolol succinate ER 25 mg/24 hour tablet See Instruct ions, # 90 EA, 2 total refill(s ), Acute Complet ed 03/08/2023 3 2022 90.0 Ambulat ory Pharmac y metoprolol succinate ER 25 mg/24 hour tablet 25 mg, Oral, Daily, # 90 EA, 3 total refill(s ), Hard Stop Oral (given by mouth) Discont inued 10/20/2023 4 2023 90.0 Ambulat ory Pharmac y metoprolol succinate ER 25 mg/24 hour tablet 25 mg, Oral, Daily, # 90 EA, 3 total refill(s ), Hard Stop Oral (given by mouth) Discont inued 07/17/2024 5 2024 90.0 Ambulat ory Pharmac y metoprolol succinate ER 50 mg/24 hour tablet See Instruct ions, # 90 EA, 3 total refill(s ), Soft Stop Ordered 5 2024 90.0 Ambulat ory Pharmac y needle pen 31g 8mm USE DIRECTED WITH INSULIN, # 100 EA, 3 total refill(s ), Acute Complet ed 03/08/2023 2 2022 100.0 Ambulat ory Pharmac y Oxycodone (Oxy IR Eq.) Tablet 5 mg Oral Take or use exactly as directed .This prescrip tion cannot be refilled .Federal law prohibit s transfer of prescrip tion.Ove rdose may cause serious breathin g problems .May cause drowsine ss/dizzi ness. 02/09/2024 [id number] 4 [address] [place] [address] Ryan SALDANA [facility] Oxycodone (Oxy IR Eq.) Tablet 5 mg Oral Take or use exactly as directed .This prescrip tion cannot be refilled .Federal law prohibit s transfer of prescrip tion.Ove rdose may cause serious breathin g problems .May cause drowsine ss/dizzi ness. 01/03/2024 [id number] 4 [address] [place] [address] Ryan SALDANA ([facility]) oxyCODONE 5 mg tablet 15 mg, Oral, TID, # 90 EA, 0 total refill(s ), Hard Stop Oral (given by mouth) Discont inued 10/20/2023 4 2023 90.0 Ambulat ory Pharmac y oxyCODONE 5 mg tablet = 3 tab(s), Oral, TID, # 90 EA, 0 total refill(s ), Hard Stop Oral (given by mouth) Complet ed 05/14/2024 5 2024 90.0 Ambulat ory Pharmac y oxyCODONE 5 mg tablet = 3 tab(s), Oral, TID, # 90 EA, 0 total refill(s ), Hard Stop Oral (given by mouth) Complet ed 03/17/2024 4 2023 90.0 Ambulat ory Pharmac y oxyCODONE 5 mg tablet 15 mg, Oral, TID, # 90 EA, 0 total refill(s ), Hard Stop Oral (given by mouth) Discont inued 10/20/2023 4 2023 90.0 Ambulat ory Pharmac y oxyCODONE 5 mg tablet 15 mg, Oral, TID, # 90 EA, 0 total refill(s ), Hard Stop Oral (given by mouth) Complet ed 12/04/2023 4 2023 90.0 Ambulat ory Pharmac y oxyCODONE 5 mg tablet 15 mg, Oral, TID, # 90 EA, 0 total refill(s ), Hard Stop Oral (given by mouth) Complet ed 10/04/2023 4 2023 90.0 Ambulat ory Pharmac y oxyCODONE 5 mg tablet = 3 tab(s), Oral, TID, # 90 EA, 0 total refill(s ), Hard Stop Oral (given by mouth) Complet ed 02/11/2024 2023 90.0 Ambulat ory Pharmac y oxyCODONE 5 mg tablet 15 mg, Oral, TID, # 90 EA, 0 total refill(s ), Hard Stop Oral (given by mouth) Discont inued 11/23/2023 4 2023 90.0 Ambulat ory Pharmac y oxyCODONE 5 mg tablet = 3 tab(s), Oral, TID, # 90 EA, 0 total refill(s ), Hard Stop Oral (given by mouth) Complet ed 01/04/2024 4 2023 90.0 Ambulat ory Pharmac y oxyCODONE 5 mg tablet 15 mg, Oral, TID, # 90 EA, 0 total refill(s ), Hard Stop Oral (given by mouth) Complet ed 06/08/2023 3 2023 90.0 Ambulat ory Pharmac y oxyCODONE 5 mg tablet = 3 tab(s), Oral, TID, # 90 EA, 0 total refill(s ), Soft Stop Oral (given by mouth) Ordered 5 2024 90.0 Ambulat ory Pharmac y oxyCODONE 5 mg tablet 15 mg, Oral, TID, # 90 EA, 0 total refill(s ), Hard Stop Oral (given by mouth) Complet ed 07/27/2023 3 2023 90.0 Ambulat ory Pharmac y pantoprazol e 40 mg oral delayed release tablet TAKE ONE TABLET DAILY, # 90 EA, 1 total refill(s ), Acute Complet ed 11/27/2022 2 2022 90.0 Ambulat ory Pharmac y pantoprazol e 40 mg oral delayed release tablet TAKE ONE TABLET BY MOUTH EVERY DAY, # 90 EA, 1 total refill(s ), Acute Complet ed 06/28/20232023 90.0 Ambulat ory Pharmac y pantoprazol e EC 40 mg tablet 40 mg, Oral, Daily, # 90 EA, 1 total refill(s ), Hard Stop Oral (given by mouth) Discont inued 09/16/2023 4 2023 90.0 Ambulat ory Pharmac y pantoprazol e EC 40 mg tablet 40 mg, Oral, Daily, # 90 EA, 3 total refill(s ), Hard Stop Oral (given by mouth) Ordered 09/09/2024 4 2023 90.0 Ambulat ory Pharmac y Polyethylen e Glycol 3350 17g Powder for solution, Oral Take or use exactly as directed .Dilute before taking. 05/27/2024 [id number] 4 [address] [place] [address] Ryan SALDANA ([facility]) polyethylen e glycol 3350 suspension [238g] See Instruct ions, 0, # 714 g, 3 total refill(s ), Hard Stop Complet ed 05/27/2024 4 2024 714.0 Ambulat ory Pharmac y SITagliptin (Eqv-Januvi a) 100 mg tablet = 1 tab(s), Oral, Daily, # 90 EA, 3 total refill(s ), Hard Stop Oral (given by mouth) Ordered 11/22/2024 5 2024 90.0 Ambulat ory Pharmac y SITagliptin (U/D) 100 MG ORAL TAB Do not drink alcohol. 08/12/2024 [id number] 4 [address] [place] [address] Ryan SALDANA ([facility] [place]) traZODone 100 mg oral tablet TAKE TWO TABLETS BY MOUTH NIGHTLY, # 180 EA, 3 total refill(s ), Acute Complet ed 03/09/2023 2 2022 180.0 Ambulat ory Pharmac y traZODone 150 mg oral tablet TAKE ONE TABLET TWICE DAILY, # 180 EA, 1 total refill(s ), Acute Complet ed 06/17/2023 3 2023 180.0 Ambulat ory Pharmac y traZODone 150 mg tablet See Instruct ions, # 30 EA, 0 total refill(s ), Soft Stop Ordered 5 2024 30.0 Ambulat ory Pharmac y traZODone 150 mg tablet 150 mg, Oral, BID, # 180 EA, 1 total refill(s ), Hard Stop Oral (given by mouth) Complet ed 03/22/2024 4 2023 180.0 Ambulat ory Pharmac y traZODone 150 mg tablet See Instruct ions, # 180 EA, 1 total refill(s ), Hard Stop Complet ed 2023 3 2023 180.0 Ambulat ory Pharmac y traZODone 50 mg tablet See Instruct ions, # 180 EA, 3 total refill(s ), Hard Stop Discont inued 07/17/2024 4 2024 180.0 Ambulat ory Pharmac y TRIAMCINOLO NE ACETONIDE (TRIAMCINOL ONE ACETONIDE), 0.1%, CREAM(GM), TOPICAL, [facility], 30 g TUBE Active [id number] 4 2023 30 Pharmac y Data Transac tion Service Facilit y Allergies, Adverse Reactions, Alerts Combined list of allergies from Department of Defense and Veterans Affairs facilities. It does not include entries that were removed or entered in error. Substance Category Reaction Severity Reaction type Status Date Reported Comments Source No Known Allergies Drug allergy (disorder) active 11/20/2004 DoD Immunizations Combined list of available immunizations from the Department of Defense and Veterans Affairs facilities. Immunization Series Date Given Administered By Site Reaction Lot Number CVX Code Drug Soa Integration Developer Status Comments Source COVID-19, mRNA, LNP-S, PF, 30 mcg/0.3 mL dose 2020 [facility] [place] (PFR) Not Given COVID-19, mRNA, LNP-S, PF, 30 mcg/0.3 mL dose [facility] influenza, high-dose, quadrivalent 2020 ALUL, () Not Given influenza , high-dose , quadrival ent DoD influenza, high-dose, quadrivalent 2019 [facility], () Not Given influenza , high-dose , quadrival ent DoD Influenza, high dose seasonal 2018 [facility], () Not Given Influenza , high dose seasonal DoD zoster live 2013 DONATO RODGERS () Not Given zoster live [facility] Procedures Combined list of: 1) Procedures from Department of Veterans Affairs facilities going back up to thelast 18 months, not all VA non-surgical procedures are included; 2) All procedures from the Department of Defense facilities. Procedure Procedure Type Code Date Perfomer Comments Sourc e No data available for this section Ambulatory P harmacy Social History Combined list of available smoking, tobacco, and other social history from Department of Defense and Veterans Affairs facilities. Social History Type Response Date Comment Sourc e This section is an empty social history section. DoD Assessment and Plan Combined list of future care activities from Department of Defense and Veterans Affairs facilities (e.g., assessment and plan notes, appointments, orders, and referrals). Additional future care activities may be listed in the Plan of Care section. Result Assessment and Plan Date Source Assessment and Plan No data available for this section 08/28/2024 Ambulatory Pharmacy Functional Status Combined list of recent functional and cognitive assessments recorded at [facility] ([place] Functional [place] Measurement (FIM) Scale: 1 = Total Assistance (Subject = 0% +), 2 = Maximal Assistance (Subject = 25% +), 3 = Moderate Assistance (Subject = 50% +), 4 = Minimal Assistance (Subject = 75% +), 5 = Supervision, 6 = Modified [place] (Device), 7 = Complete [place] (Timely, Safely). Assessment Date/Time Source Assessment Type Assessment Skill Assessment Score Assessment Details No data available for this section
--- OUTSIDE RECORDS SUMMARY | 2024-08-28 13:39 | XMS_ITS | Encounter Summary ---
Author Organization [facility] Healthcare Address [address] [place] [address] Care Team Providers Care Journeyman Patternmaker Name Role Phone Abdullahi Garcia MD Primary Care Provider [phone] Louis Hernandez MD Unavailable [phone] Nadia Scherer Unavailable [phone] Imani No RN Unavailable [phone] Jessica Duggan RN Unavailable [phone] Katrin Carranza MA Unavailable Unavailable Praveen Livingston MD Unavailable [phone] Nichole Todd LPN Unavailable [phone] Katrin Carranza MA Unavailable Unavailable Reason for Visit * Reason Onset Date Comments Scheduling Appointments 10/27/2019 Called f or DEXA appointment reminder Encounter Details Date Type Department Care Team (Late st Contact Info) Description 10/27/2019 Telephone [facility] [address] [place] [id number] Kelsi Reyes RT Scheduling Appointments (Called for DEXA appointment reminder) Social History Tobacco Use Types Packs/Day Years Used Date Smoking Tobacco: Never Smokeless Tobacco: Never Alcohol Use Standard Drinks/Week Comments Yes 0 (1 standard drink = 0.6 oz pur e alcohol) Occassional beer PHQ-2 Answer Date Recorded PHQ-2 Score 0 2018 Comments No Sex and Gender Information Value Date Recorded Sex Assigned at Not on file Legal Sex Female 11:59 PM BOXING PROMOTER Gender Identity Not on file Sexual Orientation Not on file documented as of this encounter Plan of Treatment Not on file documented as of this encounter Visit Diagnoses Not on filedocumented in this encounter Additional Health Concerns Infection Onset Date Last Indicated Resolved Time COVID: Suspected 06/29/2022 06/29/2022 06/29/2022 11:12 AM CDT COVID: Suspected 03/23/2023 03/23/2023 03/23/2023 4:15 PM BOXING PROMOTER COVID: Suspected 03/23/2023 03/23/2023 03/23/2023 7:52 PM BOXING PROMOTER COVID: Suspected 07/06/2024 07/06/2024 07/06/2024 11:27 AM CDT documented as of this encounter Care Teams Journeyman Patternmaker Relationship Specialty Start Date End Date Abdullahi Garcia MD [address] [place] [address] PCP - General 07/03/16 Louis Hernandez MD [address] [place] [address] Resident Psychiatry 02/29/20 09/18/20 Ndaia Scherer [address] [place] [address] [address] [place] [address] ACO Care Risk Intern 03/16/20 03/21/20 Imani No RN [address] [place] [address] [address] [place] [address] Booking Clerk 03/25/20 04/25/20 Jessica Duggan RN [address] [place] [address] [address] [place] [address] Booking Clerk 08/05/20 10/13/21 Katrin Carranza MA [address] [place] [address] [address] [place] [address] ACO Care Risk Intern 01/07/24 01/10/24 Praveen Livingston MD [address] [place] [address] [address] [place] [address] Consulting Physician Gastroenterology 01/24/24 Nichole Todd LPN [address] [place] [address] Booking Clerk 03/10/24 03/12/24 Katrin Carranza MA [address] [facility] [facility] [address] [place] [address] ACO Care Risk Intern 07/07/24 07/09/24 documented as of this encounter
--- OUTSIDE RECORDS SUMMARY | 2024-08-28 13:39 | XMS_ITS | Clinical Summary ---
Author Organization [facility] Address [address] [place] [address] Care Team Providers Care Inorganic Chemical Technician Name Role Phone Abdullahi Garcia MD Primary Care Provider [phone] Source Comments [facility],non-owned Affiliates and Associated Physician Practices is amultiple site organization consisting of ambulatory clinics and hospital sitesin [place], [place], [place] and [place]. This disclosure is being madepursuant to the Care Everywhere program and may not contain all information available regarding this patient. 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 Gender Identity Not on file Sexual Orientation Not on file Plan of Treatment Health Maintenance Due Date Last Done Comments BONE DENSITY TESTING 1940 MEDICARE AWV 12 MONTHS 1940 DTAP/TDAP/TD VACCINES (1 - Tdap) 1960 PNEUMOCOCCAL VACCINE 50+ (1 of 1 - PCV) 11/27/1991 ZOSTER VACCINE (1 of 2) 11/27/1991 Respiratory Syncytial Virus (RSV) Vaccine Pt: or over 60 yrs (1 - 1-dose 75+ series) 2016 COVID-19 VACCINE ( - season) 2023 01/27/2023, 12/25/2021, 03/04/2021, Additional history exists DEPRESSION SCREENING 04/05/2024 INFLUENZA VACCINE (Season Ended) 2024 01/02/2023, 01/03/2022, 12/21/2020, Additional history exists HEPATITIS B VACCINE Aged Out No longe r eligible based on patient's age to complete this topic HIB VACCINE Aged Out No longer eligi ble based on patient's age to complete this topic HPV VACCINE Aged Out No longer eligi ble based on patient's age to complete this topic MENINGOCOCCAL (Group B) VACCINE SHARED DECISION-MAKING Aged Out No longer eligible based on patient's age to complete this topic MENINGOCOCCAL GROUPS A/C/Y/W VACCINE Aged Out No longer eligible based on patient's age to complete this topic Insurance MEDICARE [facility] Care Teams Inorganic Chemical Technician Relationship Specialty Start Date End [place] [address] [place] [id number] PCP - General 01/29/12
--- OUTSIDE RECORDS SUMMARY | 2024-08-28 13:39 | XMS_ITS | Referral Summary ---
Author Organization [facility] Address [address] [place] [address] Care Team Providers Care Dynamic Etching Processor Name Role Phone Abdullahi Garcia MD Primary Care Provider [phone] Praveen Livingston MD Unavailable [phone] Encounters Date Type Department Care Team Description 07/13/2024 9:00 AM CDT Office Visit [facility] [address] [address] Marii Villatoro NP Hypertension associated with type 2 diabetes mellitus (HCC) (Primary Dx); Hyperlipidemia associated with type 2 diabetes mellitus (HCC); Type 2 diabetes mellitus with diabetic polyneuropathy, with long-term current use of insulin (HCC); Hypertension associated with diabetes (HCC); Abdominal pain; Chronic bilateral low back pain without sciatica; BMI 24.0-24.9, adult 07/10/2024 [facility] [address] [address] Katrin Carranza MA 07/07/2024 [facility] [address] [address] Katrin Carranza MA 07/07/2024 9:00 AM CDT Office Visit [facility] [address] [place] [address] Sonia Reeves MD White matter disease (Primary Dx); Chronic migraine without aura without status migrainosus, not intractable; Primary insomnia 07/06/2024 9:53 AM CDT - 07/06/2024 3:02 PM CDT Emergency [facility] Emergency Department [address] [place] [address] Mariama Carrillo MD Abdominal pain, epigastric (Primary Dx) Discharge Disposition: Discharge to home or self care 07/06/2024 8:45 AM CDT Office Visit [facility] [place] [address] [place] [address] Yandy Belle NP Tachycardia (Primary Dx); Abrasion 06/07/2024 9:00 AM PLANT OPERATIONS ENGINEER Office Visit [facility] [address] [place] [address] [address] [place] [id number] Magan Kim NP Primary osteoarthritis of right knee (Primary Dx) 06/05/2024 Telephone [facility] [address] [place] [address] [address] [place] [address] Magan Kim NP from Last 3 Months Allergies Active Allergy Reactions Criticality Noted Date [...] , with long-term current use of insulin (HCC) Inject 14 Units under the skin nightly [...] 03/14/2024 Assessment & Plan (03/14/2024 2:35 PM PLANT OPERATIONS ENGINEER): Dressing dry and intact. Can return later this week for nurse visit to assist with the dressing removal. Hospital discharge follow-up 03/14/2024 Assessment & Plan (03/14/2024 2:35 PM PLANT OPERATIONS ENGINEER): IJennifer NP have personally reviewed pertinent inpatient and/or [...] daily. Assessment & Plan (05/26/2024 8:17 AM PLANT OPERATIONS ENGINEER): This is a chronic condition which is [...] prescribed. Assessment & Plan (06/11/2023 5:10 PM PLANT OPERATIONS ENGINEER): LDL at goal of less than 70. [...] 05/27/2020 Assessment & Plan (05/27/2020 3:09 PM PLANT OPERATIONS ENGINEER): Referral to [facility]. Contact info given. Aware to call [...] activity. Assessment & Plan (06/02/2022 8:37 AM PLANT OPERATIONS ENGINEER): At goal Continue exercise at leisure world Continue with health eating. Assessment & Plan (01/29/2022 8:32 AM CDT): At goal Assessment & Plan (05/27/2020 3:09 PM PLANT OPERATIONS ENGINEER): Discussed healthy diet and importance of regular physical activity. BMI is acceptable for this patient. Type 2 diabetes mellitus wit h diabetic polyneuropathy, with long-term current use of insulin 04/25/2020 Assessment & Plan (07/13/2024 9:38 AM CDT): Following with Endocrinology. A1c has been at goal. Doing well with Lantus 14 units nightly and glimepiride 4 mg daily. Assessment & Plan (05/26/2024 8:18 AM PLANT OPERATIONS ENGINEER): This is a chronic condition which is [...] atorvastatin Assessment & Plan (06/11/2023 5:10 PM PLANT OPERATIONS ENGINEER): Lab Results Component Value Date HGBA1C 7.9 [...] regimen, patient's diabetes is managed by her network operations specialist. Last A1c = 8.2% -Lantus 14 units [...] atorvastatin Assessment & Plan (06/02/2022 8:36 AM PLANT OPERATIONS ENGINEER): This is a chronic condition which is [...] No history of macrovascular disease - CVA, MT. Assessment & Plan (01/29/2022 8:31 AM CDT): [...] No history of macrovascular disease - CVA, MT. Assessment & Plan (10/21/2021 9:45 AM CDT): [...] No history of macrovascular disease - CVA, MT. Assessment & Plan (07/16/2021 12:05 PM CDT): [...] No history of macrovascular disease - CVA, MT. Assessment & Plan (04/16/2021 10:26 AM PLANT OPERATIONS ENGINEER): This is a chronic condition which is [...] No history of macrovascular disease - CVA, MT. GI bleed due to NSAIDs 02/29/2020 Assessment & Plan (03/14/2024 2:34 PM PLANT OPERATIONS ENGINEER): No recurrent hemoptysis. H&H is stable. Continue [...] understanding. Assessment & Plan (05/27/2020 3:09 PM PLANT OPERATIONS ENGINEER): Referral to [facility]. Contact info given. Aware to call [...] 06/10/2018 Assessment & Plan (06/10/2018 9:07 AM PLANT OPERATIONS ENGINEER): Nasal saline followed by Flonase 2 sprays [...] Diabetes Assessment & Plan (06/10/2018 9:07 AM PLANT OPERATIONS ENGINEER): Nasal saline followed by Flonase 2 sprays into each nostril while looking down over the sink, do not sniff in or blow nose after use. Zpak Hearing test right before follow up in one month Impacted cerumen of right ear 06/10/2018 Assessment & Plan (06/10/2018 9:08 AM PLANT OPERATIONS ENGINEER): Avoid ear cleaning techniques Hearing loss 06/10/2018 Assessment & Plan (06/10/2018 9:08 AM PLANT OPERATIONS ENGINEER): Hearing test right before follow up in one month Diarrhea 03/24/2017 Assessment & Plan (05/27/2020 3:09 PM PLANT OPERATIONS ENGINEER): Had diarrhea this morning. Stopped after anti-diarrhea [...] age. Assessment & Plan (03/25/2017 1:12 PM PLANT OPERATIONS ENGINEER): No laxative abuse noted. Will evaluate stool for multiple organisms and Labs. May need a colonoscopy if labs do not show anything. Other considerations are Chronic Inflammatory Diarrhea, IBS, IBD. Osteoarthritis of spine with radiculopathy, cerv ical region 12/08/2016 Assessment & Plan (03/25/2017 12:58 PM PLANT OPERATIONS ENGINEER): Controlled. Continue with Daily Meloxicam. Pt does [...] dizziness. Assessment & Plan (05/26/2024 8:17 AM PLANT OPERATIONS ENGINEER): This is a chronic condition which is At goal. Goal is less than 140/90 Continue lasix, losartan, metoprolol Encouraged to monitor weight and B/P at home. Assessment & Plan (05/26/2024 7:46 AM PLANT OPERATIONS ENGINEER): >>ASSESSMENT AND PLAN FOR HYPERTENSION ASSOCIATED WITH [...] prescribed. Assessment & Plan (06/11/2023 5:09 PM PLANT OPERATIONS ENGINEER): Blood pressure is well controlled, no change [...] prescribed. Assessment & Plan (06/02/2022 8:37 AM PLANT OPERATIONS ENGINEER): This is a chronic condition which is [...] prescribed. Assessment & Plan (04/16/2021 10:27 AM PLANT OPERATIONS ENGINEER): This is a chronic condition which is not at goal Goal is <140/90 Personally reviewed labs. B/p 142/78 On losartan and metoprolol Avoid caffeine, caffeine will raise blood pressure and excessive alcohol consumption. Monitor your weight and B/P. Encouraged to take medications as prescribed. Assessment & Plan (03/25/2017 12:56 PM PLANT OPERATIONS ENGINEER): Hypertension is improving with treatment. Continue current [...] Insomnia Assessment & Plan (03/25/2017 1:05 PM PLANT OPERATIONS ENGINEER): Pt. Not taking Trazadone as prescribed by Dr. Reeves. Will f/u with Dr. Reeves on 06/08/17. Defer to him for now. Resolved Problems Problem Noted Date Diagnosed Date Resolved Date BMI 25.0-25.9,adult 08/24/2019 05/27/19 21 Assessment & Plan (08/24/2019 3:27 PM CDT): [...] mellitus Assessment & Plan (03/25/2017 1:04 PM PLANT OPERATIONS ENGINEER): Diabetes is improving with treatment. Continue current treatment regimen. Reminded to bring in blood sugar diary at next visit. Dietary recommendations for ADA diet. Regular aerobic exercise. Discussed ways to avoid symptomatic hypoglycemia. Discussed sick day management. Discussed foot care. Diabetes will be reassessed in 6 months Pt. Does see an network operations specialist. Will get scheduled for an eye exam. Last A1C on 01/22/17 was 6.0. Microalbumia/Cret ratio 5. Immunizations Immunization Administration Dates Next Due COVID-19 [...] Td, Not Adsorbed 07/15/2019 [facility] 04/16/2014,04/16/2014 Social History Tobacco Use Types Packs/Day Years Used Date Smoking Tobacco: Never Smokeless Tobacco: Never Tobacco Cessation:Counseling Given: Not Answered Alcohol Use Standard Drinks/Week Comments Yes 0 (1 standard drink = 0.6 oz pur e alcohol) Occassional beer; 4/week [facility] [employer] Answer Date Recorded In the past 12 months has [employer], oil, or water [employer] threatened to shut off services in your [...] How often do you attend chur or taoism services? More than 4 times per year 03/09/2024 Do you belong to any clubs o r organizations such as sikhism groups, unions, fraternal or athletic groups, or [...] place to sleep or slept in a care home (including now)? No 08/16/2020 Housing Stability Vital Sign Answer Douglas e Recorded In the last 12 months, was t here a time when you were not able to pay the mortgage or rent on time? No 03/09/2024 In the past 12 months, how m any times have you moved where you were living? 0 03/09/2024 At any time in the past 12 m [facility], were you homeless or living in a care home (including now)? No 03/09/2024 Personal Safety Answer Date Recorded Have you ever been in or are you currently in a harmful physical or emotional relationship or is someone making you feel afraid or unsafe? Denies 07/06/2024 Comments No Sex and Gender Information Value Date Recorded Sex Assigned at Not on file Legal Sex Female 11:59 PM PLANT OPERATIONS ENGINEER Gender Identity Not on file Sexual Orientation Not on file Last Filed Vital Signs Vital Sign Reading [...] 07/13/2024 8:33 AM CDT Plan of Treatment Not on file Goals Goal Patient Goal Type Associated Problems [...] or provider. Medical Devices Implanted Type Area Classified Advertising Supervisor Device Identifier Shelf Expiration Date Model / Serial / Lot [employer] [id number] Coil Embolization Balta Microcoil Grindstone L7cm Od3mm .018 In Catheter - [id number] Implanted:Qty: 1 on 03/02/2020 at [facility] [employer] 11/06/2024 [id number] / / [id number] [employer] [id number] Coil Embolization Balta Microcoil Grindstone L3cm Od2mm .018 In Catheter - [id number] Implanted:Qty: 1 on 03/02/2020 at [facility] [employer] 11/07/2024 [id number] / / [id number] [employer] [id number] Coil Embolization Balta Microcoil Grindstone L3cm Od2mm .018 In Catheter - [id number] Implanted:Qty: 1 on 03/02/2020 at [facility] [employer] 11/07/2024 [id number] / / [id number] Daig Addison [id number] Device Closure Angio-Seal Vip Bondek-Plus Polyglyd L70 Cm Od6 Fr Odsec.035 In Vascular - [id number] Implanted:Qty: 1 on 03/02/2020 at [facility] [employer] Addison 12/03/2020 [id number] / / [id number] [employer] [id number] Coil Embolization Balta Microcoil Grindstone L7cm Od3mm .018 In Catheter - [id number] Implanted:Qty: 1 on 03/02/2020 at [facility] [employer] 11/06/2024 [id number] / / [id number] [employer] [id number] Coil Embolization Balta Microcoil Grindstone L14cm Od3mm .018 In Catheter - [id number] Implanted:Qty: 1 on 03/02/2020 at [facility] [employer] 01/12/2025 [id number] / / [id number] [employer] [id number] Coil Embolization Balta Microcoil Grindstone L14cm Od3mm .018 In Catheter - [id number] Implanted:Qty: 1 on 03/02/2020 at [facility] [employer] 11/08/2024 [id number] / / [id number] [employer] [id number] Coil Embolization Balta Microcoil Grindstone L7cm Od3mm .018 In Catheter - [id number] Implanted:Qty: 1 on 03/02/2020 at [facility] [employer] 11/06/2024 [id number] / / [id number] [employer] [id number] Coil Embolization Balta Microcoil Grindstone L3cm Od2mm .018 In Catheter - [id number] Implanted:Qty: 1 on 03/02/2020 at [facility] [employer] 11/07/2024 [id number] / / [id number] [employer] [id number] Coil Embolization Balta Microcoil Grindstone L3cm Od2mm .018 In Catheter - [id number] Implanted:Qty: 1 on 03/02/2020 at [facility] [employer] 11/07/2024 [id number] / / [id number] [employer] [id number] Coil Embolization Balta Microcoil Grindstone L3cm Od2mm .018 In Catheter - [id number] Implanted:Qty: 1 on 03/02/2020 at [facility] [employer] 11/07/2024 [id number] / / [id number] [employer] [id number] Coil Embolization Balta Microcoil Grindstone L7cm Od3mm .018 In Catheter - [id number] Implanted:Qty: 1 on 03/02/2020 at [facility] [employer] 01/31/2025 [id number] / / [id number] Procedures Procedure Name Priority Date/Time Associated Diagnosis [...] CDT Tachycardia DIABETIC EYE EXAM Routine 06/19/2024 WA ARTHROCENTESIS ASPIR&/INJ MAJOR JT/BURSA W/O US Routine 06/07/2024 9:00 AM PLANT OPERATIONS ENGINEER Primary osteoarthritis of right knee LIPID PANEL Routine 05/26/2024 8:22 AM PLANT OPERATIONS ENGINEER Type 2 diabetes mellitus with diabetic polyneuropathy, with long-term current use of insulin (HCC) ALBUMIN CREATININE RATIO, URINE Routine 05/26/2024 8:22 AM PLANT OPERATIONS ENGINEER Type 2 diabetes mellitus with diabetic polyneuropathy, with long-term current use of insulin (HCC) POCT HEMOGLOBIN A1C Routine 05/26/2024 7:59 AM PLANT OPERATIONS ENGINEER Type 2 diabetes mellitus with diabetic polyneuropathy, with long-term current use of insulin (HCC) DEXA AXIAL SKELETON BONE DENSITY 1 OR MORE SITES Schedule Routine, Read Routine (OP Routine) 02/17/2024 8:21 AM PLANT OPERATIONS ENGINEER Encounter for osteoporosis screening in asymptomatic postmenopausal patient DIABETES FOOT EXAM Routine 11/19/2016 from Last 3 Months or Most Recently Relevant to Health Maintenance Results * Sepsis Lactate w/ Reflex (07/06/2024 1:46 PM CDT) Sepsis Lactate 1.1 0.7 - 2.0 mmol/L Blood 07/06/2024 1:46 PM CDT 07/06/2024 1:49 PM CDT us Mariama Carrillo MD LAB BLOOD ORDERABLES Sahara l Result [facility] ([place]) [address] [place] [address] * (ABNORMAL) Troponin T high-sensitivity 2-hour (07/06/2024 1:05 PM CDT) Trop T hs 28(H) <=14 ng/L Comment: Interpretive Data For further hscTnT resources including the diagnostic algorithm and an aid in interpretation, copy and paste this link: https://nrl.testcatalog.org/show/hsTrop Current Interpretive Data last revised 2020. Trop T hs delta 1 ng/L [facility] ([place]) Trop T hs interp Insignificant [facility] ([place]) Blood 07/06/2024 1:05 PM CDT 07/06/2024 1:10 PM CDT us Mariama Carrillo MD LAB BLOOD ORDERABLES Sahara delfin Result [facility] ([place]) [address] [place] [address] * (ABNORMAL) Urinalysis reflex to microscopic and [...] tendency for uric acid stone formation. Source: [facility] [employer] Current Interpretive Data was last revised on [...] PM CDT us Mariama Carrillo MD LAB MICROBIOLOGY - GENERA L ORDERABLES Final Result [facility] [place] [address] [place] [address] * CT Abdomen Pelvis W Contrast (07/06/2024 [...] Bree Olmos M.D. LC: JON Report ID: [id number] Reading Location: [id number] Procedure Note Dolores Olmos MD - 07/06/2024 [...] Bree Olmos M.D. LC: JON Report ID: [id number] Reading Location: [place] [address] Mariama Carrillo MD IMG CT PROCEDURES Final R esult * (ABNORMAL) Troponin T high-sensitivity series (baseline, 2hr, 4hr, 6hr) (07/06/2024 10:41 AM CDT) Pathologist [facility] Trop T hs 27(H) <=14 ng/L Comment: Interpretive Data For further hscTnT resources including the diagnostic algorithm and an aid in interpretation, copy and paste this link: https://nrl.testcatalog.org/show/hsTrop Current Interpretive Data last revised 2020. Blood 07/06/2024 10:4 1 AM CDT 07/06/2024 10:43 AM CDT Mariama Carrillo MD LAB BLOOD ORDERABLES Sahara lenz Result [facility] ([place]) [address] [place] [address] * Influenza A/B, RSV, and COVID-19 PCR Nasopharyngeal (07/06/2024 10:41 AM CDT) [facility] COVID-19 RNA Negative Negative Influenza A RNA Negative Negative [facility] ([place]) Influenza B RNA Negative Negative [facility] ([place]) RSV RNA Negative Negative [facility] ([place]) Comment: Interpretive data: Testing performed by [facility]. This test is performed using the [employer] Xpert Xpress CoV-2/Flu/RSV plus assay. This is a multiplex, real- time reverse transcriptase PCR assay intended for the qualitative detection of nucleic acid from SARS-CoV-2, influenza A, influenza B, and respiratory syncytial virus. This assay has been cleared by the [place] Food and Drug administration. The performance characteristics have been verified by the [facility]. Results must be considered in the clinical context, and a negative result does not rule out infection. Interpretive Data last revised 2023 Nasopharyngeal 07/06/2024 10 :41 AM CDT 07/06/2024 10:43 AM CDT Narrative [facility] ([place]) - 07/06/2024 11:26 AM CDT Is the Patient experiencing symptoms consistent with COVID?->Yes Mariama Carrillo MD LAB MICROBIOLOGY - GENERA L ORDERABLES Final Result Performing Organization Address City/[facility]/ZIP Co de Phone Number [facility] ([place]) [address] [place] [address] * (ABNORMAL) Sepsis Lactate w/ Reflex (07/06/2024 10:41 AM CDT) Pathologist [facility] Sepsis Lactate 2.9(H) 0.7 - 2.0 mmol/L Blood 07/06/2024 10:4 1 AM CDT 07/06/2024 10:43 AM CDT Mariama Carrillo MD LAB BLOOD ORDERABLES Sahara l Result [facility] ([place]) 1 [facility] [place] [address] * eGFR (07/06/2024 10:41 AM CDT) Pathologist [facility] eGFR 76 >=60 mL/min/1. 73 m2 Comment: [...] BLOOD ORDERABLES Sahara lenz Result [facility] ([place]) [address] [place] [address] * Differential, auto (07/06/2024 10:41 AM CDT) [...] MD LAB BLOOD ORDERABLES Sahara lenz Result [facility] [address] [place] [address] * CBC with auto differential (07/06/2024 10:41 AM CDT) WBC 5.09 3.80 - 9.90 K/cumm Hgb 15.0 11.9 - 15.5 g/dL [facility] ([place]) Hct 42.9 35.6 - 45.5 % [facility] ([place]) Plt 255 150 - 400 K/cumm [facility] ([place]) MPV 10.2 9.1 - 12.3 fL [facility] ([place]) RBC 4.70 3.90 - 5.20 M/cumm [facility] ([place]) MCV 91.3 81.3 - 96.4 fL [facility] ([place]) MCH 31.9 27.1 - 33.3 pg [facility] ([place]) MCHC 35.0 32.3 - 35.7 g/dL [facility] ([place]) RDW CV 12.4 11.1 - 14.9 % [facility] ([place]) RDW SD 41.4 35.7 - 48.1 fL [facility] ([place]) NRBC abs 0.00 0.00 - 0.01 K/cumm [facility] ([place]) Blood 07/06/2024 10:4 1 AM CDT 07/06/2024 10:43 AM CDT Mariama Carrillo MD LAB BLOOD ORDERABLES Sahara l Result Performing Organization Address [facility] Co de Phone Number [facility] ([place]) [address] [facility] [place] [address] * Protime-INR (07/06/2024 10:41 AM CDT) PT 10.3 9.7 - 13.0 sec [facility] ([place]) INR 0.95 0.90 - 1.20 [facility] ([place]) Comment: Interpretive data Oral anticoagulant therapeutic [...] ORDERABLES Sahara l Result Performing Organization Address [facility] Co de Phone Number [facility] ([place]) [address] [facility] [place] [address] * (ABNORMAL) Comprehensive metabolic panel (07/06/2024 10:41 AM CDT) Sodium 139 135 - 145 mmol/L Potassium, pl 3.8 3.3 - 4.9 mmol/L [facility] ([place]) Chloride 101 97 - 110 mmol/L [facility] ([place]) CO2 23 22 - 32 mmol/L [facility] ([place]) Anion gap 15 2 - 15 [...] 2022. Calcium 9.1 8.5 - 10.3 mg/dL [facility] ([place]) Bilirubin, total 1.2 0.1 - 1.2 mg/dL [facility] ([place]) Protein, pl 6.4(L) 6.5 - [...] LAB BLOOD ORDERABLES Sahara l Result [facility] PRITCHARD) [address] [facility] Department [place] [address] * ECG 12 lead (07/06/2024 9:49 AM CDT) 07/06/2024 9:49 AM CDT Narrative [facility] - 07/07/2024 7:59 AM CDT Vent Rate: 107 bpm RR Interval: 557 msec WA Interval: 119 msec QRS Duration: 90 msec QT Interval: 320 msec QTC Interval: 383 msec P-R-T [place]: 76 - -9 - 29 degrees IMPRESSION: SINUS TACHYCARDIA WITH SHORT WA INTERVAL RIGHT ATRIAL ENLARGEMENT [0.3mV P WAVE] SEPTAL MYOCARDIAL INFARCTION , OF INDETERMINATE AGE [40+ ms Q WAVE IN V1/V2] ABNORMAL ECG Compared to prior EKG, heart rate has increased Lateral ST segment depressions are new Electronically Signed By: Jerad Blackwell MD us Barrett Narayanan MD ECG ORDERABLES Fin al Result [facility] [employer] [facility] * EKG 12 lead office performed [...] short pr syndrome QRS: 98 QT/QTcBaz: 334/419ms WA: 118ms P/QRS/T: 64/-36/24degrees us Yandy Belle NP ECG ORDERABLES Final Result * ECG 12 lead (07/06/2024 8:56 AM CDT) us Yandy Belle SENIOR JAVA ENGINEER ECG ORDERABLES Final Result * (ABNORMAL) Diabetic Eye Exam (06/19/2024) 06/19/2024 Historical Provider HEALTH MAINTENANCE Final Result * [place] ARTHROCENTESIS ASPIR&/INJ MAJOR JT/BURSA W/O US (06/07/2024 9:00 AM PLANT OPERATIONS ENGINEER) Narrative Magan Kim NP - 06/07/2024 9:00 AM PLANT OPERATIONS ENGINEER Magan Kim NP 06/07/2024 9:01 AM Large [...] the procedure well with no immediate complications Magan Kim NP IN CLINIC/BEDSIDE ORDERA BLES Final Result * Albumin Creatinine Ratio, Urine (05/26/2024 8:22 AM PLANT OPERATIONS ENGINEER) Albumin Ur <12.0 mg/L Comment: Interpretive Data No reference range established. Current interpretive data was last revised 2018. Creatinine Ur 12.3 mg/dL [facility] Comment: Interpretive Data No reference range established. Current interpretive data was last revised 2018. Albumin Creatinine Ratio, Ur See Comment 1 - 29 [facility] Comment:Unable to calculate Urine 05/26/2024 8:22 AM PLANT OPERATIONS ENGINEER 05/26/2024 2:14 PM PLANT OPERATIONS ENGINEER us Joann Hopkins NP LAB URINE ORDERABLES Final Resu lt [facility] [id number] [place] [address] * (ABNORMAL) Lipid panel (05/26/2024 8:22 AM PLANT OPERATIONS ENGINEER) Cholesterol 157 30 - 199 mg/dL Comment: [...] on 2017. Triglycerides 247(H) <=149 mg/dL [facility] Comment: Interpretive Data Ages [...] on 2017. HDL 81 >=40 mg/dL [facility] Comment: Interpretive Data Ages [...] 2017. LDL, calculated 39 <=129 mg/dL [facility] Comment: Interpretive Data Ages [...] Circulation 2004;110:227 3. Gigi Jacinto et al. ELAH Cardiol. 2019August 03;5(5):540-548. doi: [email or web address].2020.0013 Current Interpretive Data was [...] revised on 2017. Chol/HDL ratio 2 [facility] Blood 05/26/2024 8:22 AM PLANT OPERATIONS ENGINEER 05/26/2024 2:14 PM PLANT OPERATIONS ENGINEER Narrative [facility] - 05/26/2024 3:17 PM PLANT OPERATIONS ENGINEER These lab test should be done fasting. This means do not eat or drink for at least 12 hours prior to getting your blood drawn. us Joann Hopkins SENIOR JAVA ENGINEER LAB BLOOD ORDERABLES Final Resu lt [facility] [id number] [place] [address] * POCT hemoglobin A1c (05/26/2024 7:59 AM PLANT OPERATIONS ENGINEER) Hemoglobin A1C, POC 7.3 4.0 - 5.6 % Blood 05/26/2024 7:59 AM PLANT OPERATIONS ENGINEER us Joann Hopkins NP POINT OF CARE TEST ORDERABLES F inal Result * Dexa Axial Skeleton Bone Density 1 or 2 Site (02/17/2024 8:21 AM PLANT OPERATIONS ENGINEER) Anatomical Region Laterality Modality Body N/A Other 02/17/2024 4:41 PM PLANT OPERATIONS ENGINEER Narrative 02/17/2024 4:42 PM PLANT OPERATIONS ENGINEER EXAM DESCRIPTION: DEXA AXIAL SKELETON BONE DENSITY 1 OR MORE SITES REASON FOR STUDY: 83 y/o year old F with given history of: post-menopausal osteoporosis prevention screening Classified Advertising Supervisor/Model: Mi Media Manzana (S/N [id number]) CLINICAL INFORMATION: Current height: 61 inches Maximum [...] Dimitri Reddy M.D. MF: FRIDA Report ID: [id number] Reading Location: [address] Note Dimitri Reddy MD - 02/17/2024 EXAM DESCRIPTION: DEXA AXIAL SKELETON BONE DENSITY 1 OR MORE SITES REASON FOR STUDY: 83 y/o year old F with given history of: post-menopausal osteoporosis prevention screening Classified Advertising Supervisor/Model: [employer] Media Manzana (S/N [id number]) CLINICAL INFORMATION: Current height: 61 inches Maximum [...] Dimitri Reddy M.D. MF: FRIDA Report ID: [id number] Reading Location: [place] [address] Marii Villatoro NP IMG DXA PROCEDURES Final Re sult * DIABETES FOOT EXAM (11/19/2016) [facility] Diabetic Foot Exam Normal SCRIBED DM FOOT SITES SENSED 6 Comment:6:6 sensed Historical Provider HEALTH MAINTENANCE Final Result from Last 3 Months or Most Recently Relevant to Health Maintenance Insurance MEDICARE FOR LIFE MEDICARE FOR LIFE MEDICARE MEDICARE [facility] [employer] [facility] Advance Directives For more information, please contact: [phone] * Full Code (Latest Code Status on [...] 9:01 AM 03/14/2020 8:36 PM Care Teams Dynamic Etching Processor Relationship Specialty Start Date End Date Abdullahi Garcia MD [address] [place] [address] PCP - General 07/03/16 Praveen Livingston MD [address] [place] [address] Consulting Physician Gastroenterology 01/24/24
--- OUTSIDE RECORDS SUMMARY | 2024-08-28 13:42 | XMS_ITS | Continuity of Care Document ---
Author Name [facility] Organization [facility] Care Team Providers Care Trial Attorney Name Role Phone [facility] Unavailable Unavailable Medications Combined list of outpatient [...] Take with food/mil k.Swallo w whole. 07/06/2024 [id number] 4 2023 90 [employer] Ryan SALDANA ([facility] aspirin EC 81 mg tablet See Instruct [...] .Do not take if . Active 09/09/2024 [id number] 4 2023 90 [employer] Ryan SALDANA ([facility] cycloSPORIN E 0.05% eye drops [5.5mL] = [...] or use exactly as directed . 05/27/2024 [id number] 4 [address] [place] [address]) gabapentin 300 mg capsule 300 mg, Oral, [...] or use exactly as directed . 06/20/2024 [id number] 4 [address] [place] [address] ([facility] glimepiride 4 mg tablet = 1 tab(s), [...] or use exactly as directed . 05/27/2024 [id number] 4 [address] [place] [address] Ryan SALDANA ([facility]) glyBURIDE 5 mg tablet 5 mg, Oral, [...] use exactly as directed .refrige rate 05/27/2024 [id number] 4 [address] [place] [address] Ryan SALDANA ([facility]) Januvia 100 mg tablet 100 mg, Oral, [...] whole.Ma y cause drowsine ss/dizzi ness. 08/12/2024 [id number] 4 [address] [place] [address] Ryan SALDANA ([facility]) metoprolol succ (U/D) 25 MG ORAL TB24 Be careful if taking OTCs.Riley e with food/mil k.Take or use exactly as directed .May impair driving. Swallow whole.Ma y cause drowsine ss/dizzi ness. 01/04/2024 [id number] 3 [address] [place] [address] Ryan SALDANA ([facility]) metoprolol succinate ER 25 mg/24 hour tablet [...] problems .May cause drowsine ss/dizzi ness. 02/09/2024 [id number] 4 [address] [place] [address] Ryan SALDANA [facility]) Oxycodone (Oxy IR Eq.) Tablet 5 mg Oral Take or use exactly as directed .This prescrip tion cannot be refilled .Federal law prohibit s transfer of prescrip tion.Ove rdose may cause serious breathin g problems .May cause drowsine ss/dizzi ness. 01/03/2024 [id number] 4 [address] [place] [address] Ryan SALDANA ([facility]) oxyCODONE 5 mg tablet 15 mg, Oral, [...] exactly as directed .Dilute before taking. 05/27/2024 [id number] 4 [address] [place] [address] Ryan SALDANA ([facility]) polyethylen e glycol 3350 suspension [238g] See [...] ORAL TAB Do not drink alcohol. 08/12/2024 [id number] 4 [address] [place] [address] Ryan SALDANA ([facility]) traZODone 100 mg oral tablet TAKE TWO [...] [employer], 30 g TUBE Active [id number] 4 2023 30 Pharmac y Data Transac [...] Site Reaction Lot Number CVX Code Drug [employer] Maker Status Comments Source COVID-19, mRNA, LNP-S, PF, 30 mcg/0.3 mL dose 2020 [employer] [place] (PFR) Not Given COVID-19, mRNA, LNP-S, PF, 30 mcg/0.3 mL dose [facility] influenza, high-dose, quadrivalent 2020 [facility], () Not Given influenza , high-dose , quadrival ent DoD influenza, high-dose, quadrivalent 2019 [facility], () Not Given influenza , high-dose , quadrival ent DoD Influenza, high dose seasonal 2018 [facility], () Not Given Influenza , high dose seasonal DoD zoster live 2013 DONAT[facility] () Not Given zoster live [facility] Procedures Combined list of: 1) Procedures [...] at [employer] (ID).VA Functional [place] Measurement (FIM) Scale: 1 = Total Assistance (Subject = 0% +), 2 = Maximal Assistance (Subject = 25% +), 3 = Moderate Assistance (Subject = 50% +), 4 = Minimal Assistance (Subject = 75% +), 5 = Supervision, 6 = Modified [place] (Device), 7 = Complete [place] (Timely, Safely). Assessment Date/Time Source Assessment Type Assessment Skill Assessment Score Assessment Details No data available for this section
[2024-08-28 13:43] VITALS: BP 178/80; PULSE 76; RESP 16; TEMP 36.1; O2SAT 97
--- NOTE | 2024-08-28 13:52 | ED_ITS ---
HPI - Fall General Chief Complaint: Fall Stated Complaint: Fall Injury/Head and Face Source: patient and RN notes reviewed Mode of arrival: ambulatory Limitations: no limitations History of Present Illness HPI Narrative: 83 y/o female with hx DM and HTN presented for c/o fall at home this morning at 0800, resulting in bruising around both eyes, headache and neck pain. States she always has neck pain and is unsure if this is changed. Also unsure how she fell or LOC. Does not recall the events, says she fell in the bathroom. Denies numbness, tingling or weakness of extremities. She is accompanied by family. Related Data Home Medications ?Medication ?Instructions ?Recorded ?Confirmed ?Last Taken ?Type cyclosporine 0.05 % eye drops in a See Rx Instructions .Route .COMPLEX 07/15/19 01/03/24 Unknown History dropperette (Restasis) fluticasone propionate 50 2 spray intranasal BID 07/15/19 01/03/24 Unknown History mcg/actuation nasal spray,suspension (Flonase Allergy Relief) gabapentin 300 mg capsule 300 mg PO DAILY 07/15/19 08/28/24 Unknown History (Neurontin) glyburide micronized 3 mg tablet 3 mg PO BID 07/15/19 01/03/24 Unknown History insulin glargine 100 unit/mL (3 10 unit subcut HS 07/15/19 01/03/24 Unknown History mL) subcutaneous pen (Lantus Solostar U-100 Insulin) losartan 50 mg tablet 50 mg PO DAILY 07/15/19 08/28/24 Unknown History potassium chloride 20 mEq 20 meq PO DAILY 07/15/19 01/03/24 Unknown History tablet,extended release(part/cryst) zolpidem 5 mg tablet 5 mg PO HS 07/15/19 01/03/24 Unknown History furosemide 20 mg tablet 20 mg PO DAILY 02/09/20 08/28/24 Unknown History trazodone 100 mg tablet 100 mg PO TID 02/09/20 01/03/24 Unknown History aspirin 81 mg chewable tablet 81 mg PO DAILY 10/13/20 01/03/24 Unknown History (Aspirin Childrens) atorvastatin 40 mg tablet 40 mg PO DAILY 01/03/24 08/28/24 Unknown History glimepiride 4 mg tablet 4 mg PO DAILY 09/30/24 05/26/25 Unknown History metoprolol succinate 25 mg 25 mg PO DAILY 01/03/24 08/28/24 Unknown History tablet,extended release 24 hr oxycodone 5 mg tablet See Rx Instructions .Route .COMPLEX 01/03/24 08/28/24 Unknown History pantoprazole 40 mg tablet,delayed 40 mg PO DAILY 01/03/24 08/28/24 Unknown History release sitagliptin phosphate 100 mg 100 mg PO DAILY 01/03/24 08/28/24 Unknown History tablet (Januvia) aspirin 81 mg tablet,delayed mg 08/28/24 Unknown History release duloxetine 30 mg capsule,delayed mg PO 08/28/24 Unknown History release metoprolol succinate 50 mg mg PO 08/28/24 Unknown History tablet,extended release 24 hr Allergies Allergy/AdvReac Type Severity Reaction Status Date / Time No Known Allergies Allergy Verified 08/28/24 13:50 Review of Systems Review of Systems: CONSTITUTIONAL: Denies body aches, fever, chills, or sweats. EYES: Denies visual changes, redness, or discharge. ENT: Denies epistaxis rhinorrhea CARDIOVASCULAR: Denies chest pain, palpitations, or edema. RESPIRATORY: Denies cough or dyspnea. GASTROINTESTINAL: Denies abdominal pain, nausea, vomiting, or diarrhea. GENITOURINARY: Denies dysuria or hematuria. SKIN: reports bruising and scrap on forehead MUSCULOSKELETAL: reports neck pain, left knee bruising. Denies back pain, joint pain, or myalgia. NEUROLOGIC: Endorses headache, denies numbness, tingling, or weakness, dizziness All systems reviewed & are unremarkable except as noted in HPI and below PMFSH Past Medical History Medical History Arthritis Essential (primary) hypertension Gastric ulcer History of blood transfusion Hyperlipidemia with target LDL less than 100 Type 2 diabetes mellitus with hyperglycemia Surgical History Surgical History H/O abdominal surgery related to ulcer repair 03/2020 Family History Family History Mother Family history of primary malignant neoplasm of liver Social History Social History Smoking status: Never smoker Second hand tobacco smoke exposure: No Alcohol intake: current Substance use: never Living arrangements: alone Gender identity (if verbalized by the patient): Female Spiritual care concerns: No Comments At time of signature, I have reviewed and agree with nursing past medical, surgical, social and family history unless otherwise noted. Please see nursing chart for further information. There is no relevant family history pertinent to the presenting complaint Exam Narrative: GENERAL: Well-appearing HEAD: large amount of bruising noted to bilateral orbits, left forehead and adventist. approx 0.5cm linear lac scabbed and dried to the forehead EYES: PERRLA, EOMI. ENT: Mucous membranes pink and moist. No epistaxis. NECK: Normal AROM. Supple. No vpt. CHEST: No respiratory distress. Clear to auscultation. HEART: Regular rate and rhythm. No murmur appreciated. Normal peripheral pulses. EXTREMITIES: Normal range of motion. No edema. Left knee bruising. SKIN: Warm, dry, no rash. Capillary refill normal. Normal skin turgor. NEURO:No focal deficits. Alert and oriented x3. EOMs intact without nystagmus. No facial droop/asymmetry noted bilaterally. Grimace intact. Intact sensation in face. Hearing intact bilaterally. Shoulder shrug intact. Strength 5/5 bilateral upper extremities. Ambulatory exam with a normal based, steady gait. PSYCH: Normal affect. Course Course Emergency Course: Patient is aware of diagnosis, understands and agrees to treatment plan. Anticipatory guidance given. Patient agrees to follow-up as directed and is aware of reasons to seek care at the emergency department. Portions of this record may have been created with voice recognition software Level of Care: Express Care Visit Vital Signs Vital signs: Vital Signs Temperature 97 F L 08/28/24 13:43 Pulse Rate 76 08/28/24 13:43 Respiratory Rate 16 08/28/24 13:43 Blood Pressure 178/80 H 08/28/24 13:43 Pulse Oximetry 97 08/28/24 13:43 Oxygen Delivery Room Air 08/28/24 13:43 Temperature 97 F L 08/28/24 13:43 Pulse Rate 76 08/28/24 13:43 Respiratory Rate 16 08/28/24 13:43 Blood Pressure 178/80 H 08/28/24 13:43 Pulse Oximetry 97 08/28/24 13:43 Oxygen Delivery Room Air 08/28/24 13:43 Transfer Transfered to: [facility] Transportation: Other (private vehicle) Transfer rationale: Pt is agreeable to transfer. Requests transfer to [facility] via private vehicle. Risks of transportation reviewed with pt including injury, worsening of condition and . v/u. Son will be driving pt; Report called to hospital, tao ahuja with Dr Que Carmen accepting physician. Pt is in stable condition at time of transfer. Advised to remain NPO and go directly to the hospital. MDM - Fall MDM Narrative Medical decision making narrative: patient presented for a fall at home several hours prior to arrival. Bruising noted to bilateral eyes, large hematoma to left adventist and forehead; no VPT. Advised ER transfer. Requests [facility].. Differential Diagnosis Differential diagnosis: Likely syncope, compression fracture, concussion with loss of consciousness, concussion without loss of consciousness and other (facial contusion, orbital fraction, facial bone fracture.) Discharge Plan Discharge Clinical Impression: Facial trauma, Fall Patient Disposition: Acute Care Hospital Condition: Stable Patient Language: Nigerien Prescriptions: No Action losartan 50 mg tablet 50 mg PO DAILY potassium chloride 20 mEq tablet,ER particles/crystals 20 meq PO DAILY gabapentin [Neurontin] 300 mg capsule 300 mg PO DAILY zolpidem 5 mg tablet 5 mg PO HS glyburide micronized 3 mg tablet 3 mg PO BID fluticasone propionate [Flonase Allergy Relief] 50 mcg/actuation spray,suspension 2 spray INTRANASAL BID cyclosporine [Restasis] 0.05 % dropperette See Rx Instructions .ROUTE .COMPLEX Rx Instructions: as prescribed insulin glargine [Lantus Solostar U-100 Insulin] 100 unit/mL (3 mL) insulin pen 10 unit SUBCUT HS metoprolol succinate 50 mg tablet extended release 24 hr PO aspirin 81 mg tablet,delayed release (DR/EC) duloxetine 30 mg capsule,delayed release(DR/EC) PO furosemide 20 mg tablet 20 mg PO DAILY trazodone 100 mg tablet 100 mg PO TID aspirin [Aspirin Childrens] 81 mg Tablet,Chewable 81 mg PO DAILY oxycodone 5 mg tablet See Rx Instructions .ROUTE .COMPLEX Rx Instructions: as prescribed pantoprazole 40 mg tablet,delayed release (DR/EC) 40 mg PO DAILY glimepiride 4 mg tablet 4 mg PO DAILY metoprolol succinate 25 mg tablet extended release 24 hr 25 mg PO DAILY Apruvia 100 mg tablet 100 mg PO DAILY atorvastatin 40 mg tablet 40 mg PO DAILY amoxicillin-pot clavulanate 875-125 mg tablet 1 tablet PO Q12H Qty: 20 0RF Follow-up/Referrals: Harms,Abdullahi Salvador M.D. [Primary Care Provider] - Time of Disposition: 14:01 Quality [place] Coma Scale Verbal: Oriented and Alert Motor: Follows Commands Acute Stroke Pre-Treatment Evaluation Acute Ischemic Stroke Pretreatment Evaluation: Acute Ischemic Stroke Pre-T reatment Evaluation Inclusion Criteria (must answer yes to questions 1 and 2) 1. Age 18 Years Or Older: No 2. Onset Of Stroke Symptoms Well Established To Be Less Than 3 Hours: No 3. Clinical Diagnosis Of Ischemic Stroke Causing Measureable Neurological Deficit And A Non-Contrast Head CT Showing NO Hemorrage: No Contraindications (0-3 Hours) 5. Stroke Or Severe Head Trauma Within Past 3 Months: No 6. Known History Of Intracranial Hemorrage: No 7. Symptoms Or Clinical Presentation Suggestion Of Subarachnoid hemorrhage: No 8. Gastrointestinal Or Urinary Tract hemorrhage Within 21 Days: No 9. Prothrombin Time (TP) Greater Than 15 Seconds or An INR Greater Than 1.7 Or An Elevated Activated Partial Throboplastin Time (aPTT): No 10. Platelet Count <100,000/ml: No 11. Glucose Lower Than 50mg/dl Or Greater than 400mg/dl: No 12. Seizure At Onset Stroke: No 13. Acute Myocardial Infarction Or Post Myocardial Infarction Pericarditis: No 14. Arterial Puncture At A Non-Compressible Site, Biopsy of Internal Organ, Within The Preceding 7 Days: No 15. Major Surgery Or Serious Trauma (Besides Head) In The Previous 14 Days: No 16. Uncontrolled Or Sustained SBP (systolic>185 mmHg) or DBP (diastolic>110 mmHg) Or Requiring Aggressive Treatment To Lower: No 17. : No Contraindications (3-4.5 Hours) 1. Age Less Than 18 or Greater Than 80 years: No 2. Severe Stroke Assessed Clinically (NIHSS Score Greater Than 25): No 3. Combination Or Previous Stroke Or Diabetes Mellitus: No 4. Symptoms Minor Or Rapidly Improving: No
== END 2024-08-28 14:04 | disposition short-term general hospital (02) ==
PROVIDERS: Emergency Provider Nurse Practitioner Family; PCP Family Medicine
DX: S05.12XA Contusion of eyeball and orbital tissues, left eye, initial encounter (principal); S05.11XA Contusion of eyeball and orbital tissues, right eye, initial encounter; W19.XXXA Unspecified fall, initial encounter; I10 Essential (primary) hypertension; E78.5 Hyperlipidemia, unspecified; E11.9 Type 2 diabetes mellitus without complications; Z79.4 Long term (current) use of insulin; M19.90 Unspecified osteoarthritis, unspecified site; Z79.82 Long term (current) use of aspirin
CPT/HCPCS: 99212; G0463